=== PATIENT | male | born 1935 | race Caucasian/White ===

== ENCOUNTER 2017-03-06 09:04 | Inpatient (IN) ==
--- NOTE | 2017-02-27 07:31 | EEG/EMG/Oth Biometrics Report ---
EEG Procedure Report Date of procedure: 02/27/17 EEG Procedure: Routine EEG Procedure Note: This is a report of a 21 channel bipolar and referential montage EEG. A posterior dominant rhythm of 7-1/2 to 8 mixed theta and alpha frequencies identified symmetrically in the posterior head regions. This rhythm attenuates symmetrically with eye opening. Hyperventilation is not performed in the recording. There is no sleep activity identified during the study. Photic stimulation is performed and does not produce a driving response. The EKG strip reveals normal sinus rhythm at 60 bpm. Impressions: This EEG recording is slightly abnormal consistent with mild generalized encephalopathy. There is no evidence of epileptiform activity identified during the study. Comment: A normal EEG does not preclude a diagnosis of seizure or epilepsy. If the clinical suspicion for seizure activity is a concern serial EEGs or perhaps a prolonged recording may increase the yield. Etiologies of the above for mentioned interpretation might include toxic, metabolic, postictal, degenerative. Please correlate clinically. The documentation in the history of HPI and plan were at least partially created by [employer] voice recognition technology by Dr. Perez. Errors in grammar, wording or other phrases may exist. If errors are found after the documentation signed, they will be addressed individually in the addendum section of this document when appropriate.
[2017-03-06] MEDS ORDERED: Ondansetron 4 MG/2 ML VIAL ONE (09:11)
[2017-03-06] MEDS ORDERED: *HR* Remifentanil 2 MG VIAL IVP ONE (09:11)
[2017-03-06] MEDS ORDERED: *HR* Heparin 5,000 UNIT/ML VIAL ONE ×2 (09:11→12:54)
[2017-03-06] MEDS ORDERED: Dexamethasone 4 MG/ML VIAL ONE (09:11)
[2017-03-06] MEDS ORDERED: *HR* FentaNYL (PF) 100 MCG/2 ML VIAL ONE (09:11)
[2017-03-06] MEDS ORDERED: *HR* Propofol 200 MG/20 ML VIAL IVP ONE (09:11)
[2017-03-06] MEDS ORDERED: Lidocaine -MPF 2% 2 ML VIAL ONE (09:11)
[2017-03-06] MEDS ORDERED: EPHEDrine 50 MG/ML VIAL ONE (09:20)
[2017-03-06] MEDS ORDERED: Water for inj. (sterile) 10 ML IV ONE (09:23)
[2017-03-06] MEDS ORDERED: Ringers Solution, Lactated 1,000 ML IVC SCH (09:30)
--- NOTE | 2017-03-06 09:35 | Anesthesia Evaluation PreOp ---
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) Pulmonary History: Denies Any Significant HX SYSTEM CONFIGURATION SPECIALIST History: Syncope (related to carotid stenosis) Other Medical History: Denies Any Significant HX Anesthesia History: No Prior Anesthetic Complications (no past surgical history) Alcohol Use: none Drug use: none Medications and Allergies Albuterol Sulfate [Ventolin Hfa] 2 puff IH Q6H PRN 02/16/17 [History] Aspirin 81 mg PO DAILY 02/16/17 [History] Lisinopril [Zestril] 20 mg PO DAILY 02/16/17 [History] Naproxen Sodium [All Day Pain Relief] 220 mg PO DAILY 02/16/17 [History] Simvastatin [Zocor] 20 mg PO HS 02/16/17 [History] Allergies No Known Allergies Allergy (Verified 02/16/17 10:28) - Meds/Allergy Pre-op Review Medications Reviewed: Yes Allergies Reviewed: Yes Beta Blockers on Current Med List: No Anesthesia Results - Labs Laboratory Tests 02/27/17 02/27/17 02/27/17 15:16 15:16 15:16 Hgb 8.7 L Hct 28.2 L Plt Count 309 PT 10.8 INR 1.0 APTT 31.5 Sodium 139 Potassium 4.3 BUN 24 Creatinine 1.01 - Imaging EKG: report reviewed (nsr with first degree AV block) Anesthesia Exam Selected Entries 03/06/17 09:26 Temperature 97.7 F Pulse Rate 77 Respiratory Rate 18 Blood Pressure 123/73 O2 Sat by Pulse Oximetry 96 Height: 67 Weight: 68kg NPO (# of Hours): >8 Pain Scale: 0 Pain Scale Used: Numeric (1 - 10) - HEENT Pupil (Motor): EOMI Mallampati: II Teeth: Edentulous Oral Opening: Greater than 3 - SYSTEM CONFIGURATION SPECIALIST LOC: Oriented SYSTEM CONFIGURATION SPECIALIST Motor: Normal RUE, Normal LUE, Normal RLE, Normal LLE, Normal Face SYSTEM CONFIGURATION SPECIALIST Sensory: Normal: RUE, LUE, RLE, LLE, Face - Cardiac Rhythm: Regular Murmur: None - Pulmonary Breath Sounds: bilateral Clear Respiratory Effort: Symmetrical Anesthesia Assess/Plan ASA Score: 2 Modified [place] Scale for Level of Consciousness: Cooperative, oriented, and tranquil Anesthetic Plan: General Monitoring Plan: Standard Monitors, A-Line Recovery Plan: PACU (Discussed risks of GA, need for a-line. Questions answered and agrees to proceed.)
[2017-03-06] MEDS ORDERED: Heparin 1,000 UNITS/500 mL NS 500 ML ONE ×2 (10:12→10:55)
[2017-03-06] MEDS ORDERED: Lidocaine 1% 20 ML MDV ONE ×2 (10:55→11:14)
[2017-03-06] MEDS ORDERED: *HR* Midazolam HCl 2 MG/2 ML VIAL ONE (11:06)
--- NOTE | 2017-03-06 11:09 | History & Physical Report ---
Date of Encounter: 03/06/17 Time of Encounter: 11:09 24 Hour HP Update - Instructions Instructions: If the History and Physical is less than 30 days old and was completed prior to A.M. admission and or procedure and has NOT been updated on calendar day of procedure please complete this update prior to performing procedure. - Update Patient reports changes in Medical Condition: No Changes in examination, assessment, or condition: No Changes in Medication: No Preop tests/diagnostics Reviewed: Yes Surgery Remains Indicated: Yes Consent for Planned Operative Procedure(s) Verified: Yes - Pre-Operative Checklist Preoperative Checklist Indicated: Yes Prophylactic Antibiotic Ordered: Yes Home Medications Include Beta Franklin: No Beta Franklin Taken Today (Day of Surgery): No Beta Franklin Taken Yesterday (Day Prior to Surgery): No Is VTE Prophylaxis Indicated?: Yes
[2017-03-06] MEDS: CeFAZolin Pre 2,000 MG/100 ML 2,000 MG/100 ML BAG IVPB ONE (11:29)
--- NOTE | 2017-03-06 11:51 | Operative Note ---
Date of procedure: 03/06/17 Pre-op diagnosis: bilateral carotid stenosis Post-op diagnosis: same Procedure: left carotid endarterectomy with 8 Fr shunt and Hemashield patch angioplasty Anesthesia: DESTINYA Surgeon: Marcos Negrete Estimated blood loss (cc): 100 Specimen: none Condition: stable Disposition: PACU Procedure in Detail: History Kolby Benites is an 81-year-old white male who was found to have an abnormal carotid artery duplex scan. It demonstrated significant stenosis bilaterally and has had an increase in his stenosis over time. The patient was recommended to have an angiogram which was performed and demonstrated high-grade stenosis bilaterally greater on the left side than on the right. The patient now comes to the operating room for left carotid surgery. He will require right carotid surgery in the near future. Procedure After informed consent was obtained the patient was taken to the operating room. An arterial line was placed in the holding area. General endotracheal anesthesia was established. The left neck was then sterilely prepped and draped. An oblique incision was made paralleling the anterior border of the sternocleidomastoid muscle. Dissection was carried down to the carotid sheath. The carotid sheath was dissected and exposed. Selective control was obtained of the carotid vessels. 5000 units of heparin was administered intravenously. It should be noted there was significant inflammatory reaction around the carotid artery and lymphadenopathy was present. After 3 minute delay the vessels were clamped with the internal carotid artery clamped first. Using 11 blade knife and Zambrano scissors the carotid was opened beginning at the level of the distal common carotid artery and extended up on into the internal carotid artery. An 8 Romanian shunt was then inserted atraumatically. Patency the shunt was confirmed by the use of intraoperative Doppler. The artery was then flushed with a copious amount of heparinized saline. This exposed the plaque which was a very complex and heterogeneous plaque. As also found that the plaque extended more distally and so therefore the arteriotomy needed to be extended and a Dax shunt clamp was used to secure distal control. The shunt was then reinspected with ultrasound to ensure patency. With this done the endarterectomy was performed beginning at the distal aspect of common carotid artery. Dissection was conducted circumferentially. The dissection was carried proximally and distally. The orifice of the superior thyroid and external carotid artery was also endarterectomized. The bed of the vessels and carefully inspected for any residual debris. This was then removed and a patch angioplasty was performed using a Hemashield patch. This was sewn into position using 2 6-0 Prolene sutures. Leaving a small space open on the suture line the shunt was clamped divided and removed. The final few sutures were placed. The internal was allowed to backflush then was reclamped. The external and common were opened and finally the internal was reopened. The patient tolerated these manipulations well. There is no hemodynamic distress. Hemostasis was achieved. A superficial cervical block using half percent Marcaine was performed. The wound was then irrigated with antibiotic containing solution. The wound was closed in layers using absorbable suture. There were no intraoperative complications. The patient was extubated in the operating room and taken to the recovery room in stable condition. The patient remained neurologically intact.
--- NOTE | 2017-03-06 12:52 | Anesthesia Procedures ---
Date of Encounter: 03/06/17 Time of Encounter: 11:15 Procedures: Anesthesia - Arterial Line Consent obtained: verbal consent Time out performed: Yes Sedation: Versed (mg): 1 Sedation: Fentanyl (mcg): 25 Supplemental Oxygen via Nasal Cannula (L/min): 2 Local Anesthetic: Other (2% lido) Amount of Anesthetic used (mls): 0.2 Size (Gauge): 20 Length (inches): 1 3/4 Technique Used: sterile prep, direct puncture technique Post-Procedure: line taped into place Patient tolerated procedure: well, no complications Complications: none Site: Radial R Vitals: Vital Signs/O2 Sat/Glucose, Most Recent Temp Pulse Resp BP Pulse Ox 97.7 F 73 18 141/70 96 03/06/17 09:26 03/06/17 11:30 03/06/17 11:30 03/06/17 11:30 03/06/17 11:30
[2017-03-06] MEDS ORDERED: *HR* Morphine 2 MG/ML SYRINGE IVP PRN ×3 (12:53→15:47)
[2017-03-06] MEDS ORDERED: *HR* Labetalol 100 MG/20 ML MDV IVP PRN (12:53)
[2017-03-06] MEDS ORDERED: *HR* Morphine 10 MG/ML VIAL ONE (15:02)
--- NOTE | 2017-03-06 15:28 | Anesthesia Evaluation Post Op ---
Date of Encounter: 03/06/17 Time of Encounter: 15:20 - Vital Signs Vital Signs: vss - Lungs Lungs: Clear Ascult./Percussion - Airway Airway: Non-obstructed - Cardiovascular Regular Rate, Baseline Rhythm - Mental Status Mental Status: Alert & Oriented, Answers Appropriately - Pain Pain Scale: 0 Pain Scale used: Numeric (1 - 10) - Nausea Vomiting Nausea Vomiting: Not Present - Hydration Hydration: NPO, Tolerates oral liquids, Ice chips - Discharge PostOp Status: Transfer Patient to floor
[2017-03-06] MEDS ORDERED: Acetaminophen 325 MG TABLET PO PRN (15:47)
[2017-03-06] MEDS ORDERED: Ondansetron 4 MG/2 ML VIAL IVP PRN (15:47)
[2017-03-06] MEDS ORDERED: *HR* HYDROcodone/Acet 5/325 mg TABLET PO PRN (15:47)
[2017-03-06] MEDS ORDERED: Naloxone 0.4 MG/ML INJ IVP PRN (15:47)
[2017-03-06] MEDS ORDERED: *HR* Labetalol 20 MG/4 ML SYRINGE IVP PRN (16:54)
[2017-03-06] MEDS: Lisinopril 20 MG TABLET PO SCH (17:23)
[2017-03-06] MEDS: ceFAZolin 2,000 MG in D5% in Water 100 ML IVPB SCH ×2 (17:23→23:33)
[2017-03-07 04:47] LABS: Hematocrit 25.7 % (37.5-50.1); Hemoglobin 7.9 g/dL (12.9-16.9); Immature Granulocytes % 0.3 % (0-4); Immature Platelets 1.9 % (1.1-6.1); Lymphocytes # 0.9 K/mcL (0.6-4.6); Lymphocytes % 13.2 %; Mean Corpuscular HGB Conc 30.7 g/dL (31.6-35.5); Mean Corpuscular Hemoglobin 23.9 pg (28.0-33.3); Mean Corpuscular Volume 77.9 fL (83.0-100.0); Mean Platelet Volume 9.7 fL (9.4-12.4); Monocytes # 1.1 K/mcL (0.0-1.3); Neutrophils # 4.7 K/mcL (1.6-8.9); Platelet Count 275 K/mcL (140-400); Red Cell Distribution Width 17.1 % (11.5-14.5); Segmented Neutrophils % 70.5 %
[2017-03-07 05:00] LABS: BUN/Creatinine Ratio 21 (6-26); Blood Urea Nitrogen 19 mg/dL (8-26); Calcium 8.3 mg/dL (8.6-10.8); Carbon Dioxide 25 mEq/L (19-29); Chloride 106 mEq/L (98-109); Glucose 128 mg/dL (70-99); Osmolality,Calculated 288 (280-300); Sodium 137 mEq/L (136-145); eGFR For African Americans > 60 (> 60); eGFR For Non-African Americans > 60 (> 60)
[2017-03-07] MEDS: Lisinopril 20 MG TABLET PO SCH (07:33)
[2017-03-07] MEDS: CeFAZolin Pre 2,000 MG/100 ML 2,000 MG/100 ML BAG IVPB ONE (08:18)
--- NOTE | 2017-03-07 08:23 | Discharge Summary ---
Date of Encounter: 03/07/17 Time of Encounter: 08:20 - Discharge Diagnosis (1) Bilateral carotid artery disease Priority: Primary Status: Chronic Comments: Patient has worsening of duplex scan findings of carotid artery disease. Angiography confirmed high-grade stenosis bilateral. The patient underwent a left carotid endarterectomy at this time because this was the more severe of the 2 critical stenoses. He will return in the near future for a right carotid endarterectomy. (2) Hypertension Priority: Secondary Status: Chronic Comments: Patient has long-term central chronic hypertension which is under control with the use of lisinopril. Qualifiers: Hypertension type: essential hypertension Qualified Code(s): I10 - Essential (primary) hypertension (3) Chronic anemia Priority: Secondary Status: Chronic Comments: Patient has chronic anemia. Mild changes due to minimal perioperative blood loss and perioperative intravenous hydration. Patient is asymptomatic and no intervention is necessary at this time. - Discharge Medications Home Medications: Albuterol Sulfate [Ventolin Hfa] 2 puff IH Q6H PRN 02/16/17 [History] Aspirin 81 mg PO DAILY 02/16/17 [History] Lisinopril [Zestril] 20 mg PO DAILY 02/16/17 [History] Naproxen Sodium [All Day Pain Relief] 220 mg PO DAILY 02/16/17 [History] Simvastatin [Zocor] 20 mg PO HS 02/16/17 [History] Allergies/Adverse Reactions: Allergies No Known Allergies Allergy (Verified 03/06/17 10:27) Date of admission: 03/06/17 15:25 Primary care physician: Juanito Santana MD Consults: None Procedure(s) Performed: Left carotid endarterectomy with patch angioplasty Discharging clinician: Marcos Negrete Anticipated date of discharge: 03/07/17 - Patient Status Disposition: Home, Self-Care Condition: Good Functional capacity at discharge: independent ambulation Overall status at discharge: patient is progressing back to baseline - Discharge Instructions Instructions: Heart Healthy Diet (DC), Peripheral Vascular Disorders (DC), Chronic Hypertension (DC) Follow Up With: Juanito Santana MD [Primary Care Provider] - 03/13/17 10:20 am Marcos Negrete MD [Partnered Physician] - 03/14/17 (call clinic to schedule time) Additional Instructions: Keep left neck incision dry for total 5 days following surgery Use ice pack on left neck incision for 2 days after discharge at home. No manual labor for 2 weeks No automobile driving or lifting greater than 10 pounds Patient is to resume usual home medications Patient is to follow-up with Dr. Negrete in 2 weeks. - Diet and Activity Activity: increase activity as tolerated Diet: advance to your usual diet - Hospital Course Hospital course: Mr. Benites is a 81 year old male With history of carotid artery disease. He was followed with outpatient carotid duplex scanning. This showed an exacerbation of the stenosis. He then went on to have a carotid angiogram. This confirmed our suspicion of high-grade and critical stenosis of the carotid arteries bilaterally. The left was more critical of the tube and so therefore the left carotid endarterectomy was performed at this time. The patient will need right carotid surgery and this will be will be performed in the near future. The patient tolerated the procedure well. No periprocedural complications. He had no anesthetic complications. He was neurologically intact following surgery. The patient will be ambulated in the hallways and if stable will be discharged to home later today. Information regards to wound care, medications, and discharge planning were reviewed with the patient and his prior to the patient's discharge. - Time Spent with Patient Total time spent providing and/or coordinating discharge services: Exam Vital Signs, Last 4 Hours Temp Pulse Resp BP Pulse Ox 03/07/17 07:13 98.4 F 70 16 112/58 94 General: Present: Conversant, No Apparent Distress HEENT: Present: Atraumatic, Normocephaly, Trachea midline, Pupils equal Neck: Absent: JVD Cardiac: Present: Reg Rate and Rhythm Lungs: Present: Normal Breath Sounds Neuro: Present: Alert and responsive, No focal deficits noted, Cranial nerves grossly intact, Motor nerves grossly intact, Sensory nerves grossly intact Vascular: Present: Surgical incisions (Left neck incision is clean and dry) Skin: Present: No rashes noted on visualized skin - VTE Documentation of Mechanical Device: Intermittent pneumatic compression device
[2017-03-07] MEDS: ceFAZolin 2,000 MG in D5% in Water 100 ML IVPB SCH (08:45)
[2017-03-07] MEDS ORDERED: Lisinopril 20 MG TABLET PO SCH (09:00)
[2017-03-07] MEDS ORDERED: Aspirin 81 MG TAB.CHEW PO SCH (09:00)
[2017-03-07 15:30] VITALS: BP 123/69
== END 2017-03-07 16:58 | disposition home or self-care (01) ==
LOC: SAMDAY 09:04 → 2NNU 15:25
PROVIDERS: ADMIT Surgery Vascular Surgery; ATTEND Surgery Vascular Surgery

== ENCOUNTER 2017-03-22 06:11 | Inpatient (IN) ==
[2017-03-22] MEDS ORDERED: CeFAZolin Pre 2,000 MG/100 ML 2,000 MG/100 ML BAG IVPB ONE (06:29)
[2017-03-22] MEDS ORDERED: Lidocaine -MPF 1% 2 ML VIAL ID ONE (06:29)
[2017-03-22] MEDS: Ringers Solution, Lactated 1,000 ML IVC SCH ×2 (06:52→09:32)
[2017-03-22] MEDS ORDERED: Dexmedetomidine HCl 200 MCG/50 ML MLS IVC ONE (06:59)
--- NOTE | 2017-03-22 07:33 | Anesthesia Evaluation PreOp ---
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 HX Other Medical History: Denies Any Significant HX Anesthesia History: No Prior Anesthetic Complications, Past Anesthesia Alcohol Use: none Drug use: none Medications and Allergies Aspirin 81 mg PO DAILY 02/16/17 [History] Simvastatin [Zocor] 20 mg PO HS 02/16/17 [History] Latanoprost [Xalatan] 1 drop BOTH EYES HS 03/22/17 [History] Lisinopril-HCTZ 20-12.5 [Prinzide 20-12.5] 1 tab PO DAILY 03/22/17 [History] Omeprazole [PriLOSEC] 20 mg PO DAILY PRN 03/22/17 [History] Terbinafine HCl [Terbinafine HCl] 250 mg PO DAILY 03/22/17 [History] Allergies No Known Allergies Allergy (Verified 03/22/17 06:53) - Meds/Allergy Pre-op Review Medications Reviewed: Yes Allergies Reviewed: Yes Beta Blockers on Current Med List: No Anesthesia Results - Imaging EKG: report reviewed, image reviewed (sinus rhythm with first degree AV block) Anesthesia Exam Selected Entries 03/22/17 06:29 Temperature 98.0 F Pulse Rate 80 Respiratory Rate 18 Blood Pressure 120/65 O2 Sat by Pulse Oximetry 95 Weight: 157 lbs NPO (# of Hours): over 8 hours - HEENT Pupil (Motor): Pupils equal Mallampati: II Teeth: Edentulous Oral Opening: Greater than 3 - Cardiac Rhythm: Regular - Pulmonary Breath Sounds: bilateral Clear Respiratory Effort: Symmetrical Anesthesia Assess/Plan ASA Score: 2 Modified [place] Scale for Level of Consciousness: Cooperative, oriented, and tranquil Anesthetic Plan: General Autologous Blood: Yes Monitoring Plan: Standard Monitors, A-Line Recovery Plan: PACU (Discussed GA, risks agreed to proceed. Patient will be Type and Screened prior to OR. Will discuss patients anemia with Dr. Negrete prior to proceeding.)
--- NOTE | 2017-03-22 07:47 | History & Physical Report ---
Date of Encounter: 03/22/17 Time of Encounter: 07:35 24 Hour HP Update - Instructions Instructions: If the History and Physical is less than 30 days old and was completed prior to A.M. admission and or procedure and has NOT been updated on calendar day of procedure please complete this update prior to performing procedure. - Update Patient reports changes in Medical Condition: No Changes in examination, assessment, or condition: No Changes in Medication: No Preop tests/diagnostics Reviewed: Yes Surgery Remains Indicated: Yes Consent for Planned Operative Procedure(s) Verified: Yes - Pre-Operative Checklist Preoperative Checklist Indicated: Yes Prophylactic Antibiotic Ordered: Yes Home Medications Include Beta Franklin: No Beta Franklin Taken Today (Day of Surgery): No Beta Franklin Taken Yesterday (Day Prior to Surgery): No Is VTE Prophylaxis Indicated?: Yes
[2017-03-22] MEDS ORDERED: Heparin 1,000 UNITS/500 mL NS 1,500 ML ONE (07:58)
[2017-03-22] MEDS ORDERED: Lidocaine 1% 20 ML MDV ONE (07:58)
[2017-03-22] MEDS ORDERED: *HR* FentaNYL (PF) 100 MCG/2 ML VIAL ONE (09:33)
[2017-03-22] MEDS ORDERED: *HR* Morphine 2 MG/ML SYRINGE IVP PRN ×2 (11:02→12:31)
[2017-03-22] MEDS ORDERED: Ondansetron 4 MG/2 ML VIAL IVP ONE (11:02)
--- NOTE | 2017-03-22 11:25 | Operative Note ---
Date of procedure: 03/22/17 Pre-op diagnosis: right carotid stenosis Post-op diagnosis: same Procedure: right carotid endarterectomy with 8 FR shunt and patch angioplasty Complications: none Anesthesia: DESTINYA Surgeon: Marcos Negrete Estimated blood loss (cc): 75 Specimen: none Condition: stable Disposition: PACU Procedure in Detail: History Mr. Benites is an 81-year-old white male was found to have a markedly abnormal carotid duplex scan. This led to a carotid angiogram which demonstrated critical stenosis bilaterally. He does undergo on a left carotid endarterectomy approximately 3 weeks ago. He now comes for the right carotid endarterectomy. Procedure After informed consent was obtained the patient was taken to the operating room. General endotracheal anesthesia was established and arterial line was placed. The right neck was sterilely prepped and draped. A timeout protocol was observed. An oblique incision was then made paralleling the anterior border sternocleidomastoid muscle. Dissection was carried down to the carotid sheath. Controls obtained of the carotid arteries. The nerve structures were identified and preserved. 5000 units heparin were administered intravenously. After 3 minutes later the vessels were clamped with the internal carotid artery clamped first. Using 11 blade knife and Zambrano scissors to the artery was opened. An 8 Uzbek was inserted atraumatically. Patency the shunt was confirmed by the use of intraoperative Doppler. Inspection of the plaque revealed a very irregular and dense thick plaque. There is areas of intramural hemorrhage that appeared to be fresh on the distal aspect. There was no signs of intraluminal thrombus. The dissection was then begun at the distal aspect of the common carotid artery. A dissection plane was established circumferentially. It was then carried proximally and distally. The superior thyroid and external carotid artery were endarterectomized. The endpoint on the internal carotid artery was quite high and required extension of the arteriotomy in order to secure an appropriate distal endpoint. After meticulous dissection and removal of all plaque and the endpoint was secured. No tacking sutures were necessary. The artery was then closed using a Hemashield patch. This was sewn in position using 2 6-0 Prolene sutures. Leaving a small space open on the suture line the shunt was clamped and divided and removed. The final few sutures were then placed. The internal carotid was allowed to backbleed and was reclamped. The external and common were opened and finally the internal was reopened. There is no hemodynamic distress with this maneuver. Excellent pulsations were identified by palpation and by Doppler evaluation. Hemostasis was achieved. A superficial cervical block using half percent Marcaine was performed. The wound was then closed in layers using absorbable suture. A dry sterile dressing was applied. No drains were placed. Estimated blood loss 75 mL. Patient was extubated in the operating room and found be neurologically intact. He was then transported from the operating room to the recovery room in stable condition.
--- NOTE | 2017-03-22 12:12 | Anesthesia Evaluation Post Op ---
Date of Encounter: 03/22/17 Time of Encounter: 12:12 - Vital Signs Vital Signs: Vital Signs/O2 Sat, Most Current Temp Pulse Resp BP Pulse Ox 98.2 F 86 20 133/74 96 03/22/17 12:06 03/22/17 12:06 03/22/17 12:06 03/22/17 12:03/22/17 12:06 - Lungs Lungs: Clear Ascult./Percussion - Airway Airway: Non-obstructed - Cardiovascular Regular Rate - Mental Status Mental Status: Alert & Oriented, Answers Appropriately - Pain Pain Scale: 0 Pain Scale used: Numeric (1 - 10) - Nausea Vomiting Nausea Vomiting: Not Present - Hydration Hydration: Ice chips, Bailon catheter - Discharge PostOp Status: Transfer Patient to floor
[2017-03-22] MEDS ORDERED: *HR* HYDROcodone/Acet 5/325 mg TABLET PO PRN (12:31)
[2017-03-22] MEDS ORDERED: Ondansetron 4 MG/2 ML VIAL IVP PRN (12:31)
[2017-03-22] MEDS ORDERED: Naloxone 0.4 MG/ML INJ IVP PRN (12:31)
[2017-03-22] MEDS ORDERED: Acetaminophen 325 MG TABLET PO PRN (12:31)
--- NOTE | 2017-03-22 12:54 | Anesthesia Procedures ---
Date of Encounter: 03/22/17 Time of Encounter: 08:02 Procedures: Anesthesia - Arterial Line Consent obtained: written consent Time out performed: Yes Sedation: Versed (mg): 1 Local Anesthetic: Lidocaine 1% Amount of Anesthetic used (mls): 1 Size (Gauge): 20 Length (inches): 1 3/4 Technique Used: sterile prep, direct puncture technique Post-Procedure: line taped into place, dry sterile dressing placed Patient tolerated procedure: well, no complications Complications: none Site: Radial L Vitals: vss though out.
[2017-03-22] MEDS: ceFAZolin 2,000 MG in D5% in Water 100 ML IVPB SCH (18:23)
[2017-03-22] MEDS ORDERED: Latanoprost 2.5 ML BOTTLE BOTH EYES SCH (21:00)
[2017-03-23] MEDS: ceFAZolin 2,000 MG in D5% in Water 100 ML IVPB SCH ×2 (02:40→09:19)
[2017-03-23 05:31] LABS: Basophils % 0.1 %; Eosinophils # 0.1 K/mcL (0.0-0.6); Eosinophils % 0.7 %; Hematocrit 26.1 % (37.5-50.1); Hemoglobin 8.2 g/dL (12.9-16.9); Immature Granulocytes % 0.1 % (0-4); Lymphocytes # 1.3 K/mcL (0.6-4.6); Lymphocytes % 18.6 %; Mean Corpuscular HGB Conc 31.4 g/dL (31.6-35.5); Mean Corpuscular Hemoglobin 24.7 pg (28.0-33.3); Mean Corpuscular Volume 78.6 fL (83.0-100.0); Mean Platelet Volume 9.8 fL (9.4-12.4); Monocytes # 1.1 K/mcL (0.0-1.3); Monocytes % 14.9 %; Neutrophils # 4.6 K/mcL (1.6-8.9); Platelet Count 323 K/mcL (140-400); Red Blood Count 3.32 M/mcL (4.19-5.50); Red Cell Distribution Width 17.5 % (11.5-14.5); Segmented Neutrophils % 65.6 %
[2017-03-23 05:49] LABS: BUN/Creatinine Ratio 18 (6-26); Blood Urea Nitrogen 17 mg/dL (8-26); Carbon Dioxide 27 mEq/L (19-29); Chloride 105 mEq/L (98-109); Glucose 159 mg/dL (70-99); Osmolality,Calculated 291 (280-300); Potassium 3.8 mEq/L (3.5-4.5); Sodium 138 mEq/L (136-145); eGFR For African Americans > 60 (> 60); eGFR For Non-African Americans > 60 (> 60)
[2017-03-23] MEDS ORDERED: Lisinopril-HCTZ 20-12.5mg TABLET PO SCH (09:00)
[2017-03-23] MEDS ORDERED: Aspirin 81 MG TAB.CHEW PO SCH (09:00)
[2017-03-23] MEDS ORDERED: (Terbinafine Hcl [Terbinafine Hcl] 250 MG) PO SCH (09:00)
[2017-03-23 11:45] VITALS: BP 112/80
--- NOTE | 2017-03-23 14:08 | Discharge Summary ---
Date of Encounter: 03/23/17 Time of Encounter: 14:06 - Discharge Diagnosis (1) Bilateral carotid artery disease Priority: Primary Status: Chronic Comments: Patient underwent right carotid endarterectomy during this admission. He had undergone a left carotid endarterectomy approximately 3 weeks ago. (2) Chronic anemia Priority: Secondary Status: Chronic Comments: The patient was found to have a hemoglobin of 7.9 grams between his 2 carotid operations. Therefore one unit of packed red blood cells was transfused during surgery though the blood loss for the surgery itself was very minimal during the patient notes he is feeling better postoperatively following the transfusion. - Discharge Medications Home Medications: Aspirin 81 mg PO DAILY 02/16/17 [History] Simvastatin [Zocor] 20 mg PO HS 02/16/17 [History] Latanoprost [Xalatan] 1 drop BOTH EYES HS 03/22/17 [History] Lisinopril-HCTZ 20-12.5 [Prinzide 20-12.5] 1 tab PO DAILY 03/22/17 [History] Omeprazole [PriLOSEC] 20 mg PO DAILY PRN 03/22/17 [History] Terbinafine HCl 250 mg PO DAILY 03/22/17 [History] Allergies/Adverse Reactions: Allergies No Known Allergies Allergy (Verified 03/22/17 06:53) Date of admission: 03/22/17 12:15 Primary care physician: Juanito Santana MD Consults: None Procedure(s) Performed: Right carotid endarterectomy with patch angioplasty Transfusion one unit packed red blood cells Discharging clinician: Marcos Negrete Anticipated date of discharge: 03/23/17 - Patient Status Disposition: Home, Self-Care Condition: Good Functional capacity at discharge: independent ambulation Overall status at discharge: patient is progressing back to baseline - Discharge Instructions Follow Up With: Juanito Santana MD [Primary Care Provider] - 03/30/17 11:40 am Marcos Negrete MD [Partnered Physician] - 04/11/17 11:45 am Additional Instructions: Keep right neck incision dry for total of 5 days following surgery. No automobile driving. No lifting greater than 10 pounds. No manual labor. Patient is to resume his usual home medications. Patient is to use ice pack on right neck for the next 2-3 days. - Diet and Activity Activity: as per physical therapy Diet: low fat, low cholesterol - Hospital Course Hospital course: Mr. Benites is a 81 year old male With known bilateral carotid artery disease. The patient had undergone a left carotid endarterectomy approximately 3 weeks ago. He now returns for the right carotid lesion. The right carotid endarterectomy was performed yesterday under general endotracheal anesthesia. The patient had a very long lesion. There were no periprocedural complications. The patient was noted to have a low hemoglobin of 7.9 and was transfused 1 unit of blood intraoperatively though the blood loss for the procedure itself was minimal. Postoperatively the patient was doing well. He had no neurologic deficits. Hemoglobin was now greater than 8 g. The patient was felt fit for discharge on the afternoon of postoperative day # 1. Instructions were given in regards to his diet and activity and wound care. - Time Spent with Patient Total time spent providing and/or coordinating discharge services: Exam Vital Signs, Last 4 Hours Temp Pulse Resp BP Pulse Ox 03/23/17 11:41 97.6 F 90 16 112/80 98 General: Present: Conversant, No Apparent Distress, Well developed HEENT: Present: Atraumatic, Normocephaly, Trachea midline Neck: Absent: JVD Cardiac: Present: Reg Rate and Rhythm Neuro: Present: Alert and responsive, No focal deficits noted, Cranial nerves grossly intact, Motor nerves grossly intact, Sensory nerves grossly intact Vascular: Present: Normal capillary refill Skin: Present: No rashes noted on visualized skin - VTE Documentation of Mechanical Device: Intermittent pneumatic compression device
== END 2017-03-23 15:05 | disposition home or self-care (01) | DRG 39 ==
LOC: SAMDAY 06:11 → 2NNU 12:15
PROVIDERS: ADMIT Surgery Vascular Surgery; ATTEND Surgery Vascular Surgery

== ENCOUNTER 2017-07-20 14:38 | Inpatient (IN) ==
--- NOTE | 2017-07-20 15:31 | Emergency Department Note ---
Disposition Clinical Impression: Sinus pause, Syncope Disposition: Admitted As Inpatient Condition: Good Time of Disposition: 17:36 General Adult HPI - General Chief complaint: ED Arrhythmia/Palpitations Stated complaint: arrhythmia, syncope Time Seen by Provider: 07/20/17 14:51 Source: patient Limitations: no limitations Nursing Notes Reviewed: Yes Vital Signs Reviewed: Yes - History of Present Illness HPI Narrative: Several week history of dizziness. The amount of REM states that the patient has episodes where he passes out. Male suggests that he is not actually passing out he can hear everything the same time as to communicate. Is unaware. Will not communicate because he is being mean or cannot communicate. Did have a Holter monitor. Showed pauses. Sent to the emergency department. Pain Scale: 0 - Related Data Home Medications Medication Instructions Recorded Confirmed Aspirin 81 mg PO DAILY 02/16/17 07/20/17 Latanoprost [Xalatan] 1 drop BOTH EYES HS 03/22/17 07/20/17 Omeprazole [PriLOSEC] 20 mg PO DAILY PRN 03/22/17 07/20/17 Atorvastatin [Lipitor] 40 mg PO HS 07/20/17 07/20/17 Lisinopril [Zestril] 10 mg PO DAILY 07/20/17 07/20/17 Allergies Allergy/AdvReac Type Severity Reaction Status Date / Time No Known Allergies Allergy Verified 03/22/17 06:53 All systems ED: reviewed and negative except as stated. Constitutional: Denies: fever, chills ENT ED: Denies: congestion Cardiovascular: Denies: chest pain, palpitations, syncope Respiratory: Denies: cough, dyspnea Gastrointestinal: Denies: abdominal pain, nausea, vomiting, diarrhea Genitourinary: Denies: urgency, dysuria, frequency Integumentary: Denies: rash Neurological: Denies: headache, weakness Past Medical History - Past Medical History Attestation: Yes The following information was validated with the patient. Source: patient Medical history: Reports: hyperlipidemia, hypertension Surgical history: Reports: no surgical history Psychiatric history: Reports: no psych history - Social History Smoking Status: Former smoker Smokeless Tobacco Status: No Alcohol use: Reports: rarely Drug use: Reports: none Physical Exam - General Limitations: no limitations General appearance: alert, in no apparent distress - Head Head exam: atraumatic, normocephalic, normal inspection - Eye Eye exam: Present: normal appearance, PERRL, EOMI - ENT ENT exam: normal exam, normal oropharynx, mucous membranes moist - Neck Neck exam: Present: normal inspection, full ROM, trachea midline - Chest Chest inspection: Present: normal inspection, symmetric chest wall rise - Respiratory Respiratory exam: Present: normal lung sounds bilaterally. Absent: respiratory distress, accessory muscle use - Cardiovascular Cardiovascular exam: Present: regular rate, normal rhythm, normal heart sounds - Abdominal Exam Abdominal exam: Present: soft, Non-Tender, normal bowel sounds. Absent: tenderness, distention, guarding, rebound, rigidity, organomegaly - Extremities Exam Extremities exam: Present: normal inspection, full ROM, normal capillary refill. Absent: tenderness, pedal edema - Back Exam Back exam: Present: normal inspection, full ROM. Absent: tenderness - Neurological Exam Neurological exam: Present: alert, oriented X3 - Psychiatric Psychiatric exam: Present: normal affect, normal mood - Skin Skin exam: Present: warm, dry, intact, normal color. Absent: rash, cyanosis, diaphoresis, erythema Course Course Narrative: Patient presenting to the emergency department complaining of three-week history of dizziness. Patient recently had a Holter monitor placed and removed. This was performed at hours. He states that he was told by Dr. Tillman the handkerchief presser to come to the emergency department today for several pauses noted on his Holter monitor. Patient states that he does not believe he is ever fully pass out however the femur on the room states that he does this frequently. He states that he can still hear the female whenever he he has "passed out. He states that he does not have features being mean and does not want to speak to her or if he just cannot talk at that time. He states he has never had this Before. States that he has never had chest pain or shortness of breath. States he otherwise feels well at this time. We will do basic cardiac workup of patient contact Dr. Tillman. I anticipate admission for the patient. He has no complaints at this time. He has requesting coffee. We will withhold this for now. - Reevaluation(s) Reevaluation #1: Patient's workup was grossly normal. We will admit patient for his syncope as well as the sinus pauses. We have spoke with cardiology. They state they will see the patient has a consult here. Patient is agreeable to admission. - Consultations Consultation #1: I spoke with the handkerchief presser Dr. Lance Tillman. He is requesting admission and states they will consult on the floor here. Consultation #2: Master the nurse practitioner accepted patient in stable condition. Time: 17:35 Vital Signs Temperature 98.5 F 07/20/17 14:52 Pulse Rate 67 07/20/17 14:52 Respiratory Rate 16 07/20/17 14:52 Blood Pressure 152/76 07/20/17 14:52 O2 Sat by Pulse Oximetry 96 07/20/17 14:52 Temperature 98.0 F 07/21/17 06:48 Pulse Rate 63 07/21/17 06:48 Respiratory Rate 18 07/21/17 06:48 Blood Pressure 160/83 07/21/17 06:48 O2 Sat by Pulse Oximetry 97 07/21/17 06:48 Oxygen Delivery Oxygen Delivery Room Air Medical Decision Making - Medical Records Medical records reviewed: Yes I reviewed the patient's medical records. - Lab Data Lab results reviewed: Yes I reviewed the patient's lab results. Result diagrams: 07/21/17 05:24 07/21/17 05:24 Lab Results 07/20/17 07/20/17 07/20/17 Range/Units 15:15 15:15 15:15 WBC 4.3 (4.3-11.1) K/mcL RBC 4.54 (4.19-5.50) M/mcL Hgb 13.0 (12.9-16.9) g/dL Hct 40.3 (37.5-50.1) % MCV 88.8 (83.0-100.0) fL MCH 28.6 (28.0-33.3) pg MCHC 32.3 (31.6-35.5) g/dL RDW 15.5 H (11.5-14.5) % Plt Count 231 (140-400) K/mcL MPV 9.6 (9.4-12.4) fL Immature Gran % 0.0 (0-4) % Seg Neutrophils % 46.7 % Lymphocytes % 31.9 % Monocytes % 12.0 % Eosinophils % 8.9 % Basophils % 0.5 % Neutrophils # 2.0 (1.6-8.9) K/mcL Lymphocytes # 1.4 (0.6-4.6) K/mcL Monocytes # 0.5 (0.0-1.3) K/mcL Eosinophils # 0.4 (0.0-0.6) K/mcL Basophils # 0.0 (0.0-0.2) K/mcL PT 10.8 (9.4-12.1) Seconds INR 1.0 APTT 31.2 (26.0-36.0) Seconds Sodium 141 (136-145) mEq/L Potassium 4.4 (3.5-4.5) mEq/L Chloride 105 (98-109) mEq/L Carbon Dioxide 29 (19-29) mEq/L BUN 16 (8-26) mg/dL Creatinine 1.02 (0.72-1.25) mg/dL Est GFR ( Amer) > 60 (> 60) Est GFR (Non-Af Amer) > 60 (> 60) BUN/Creatinine Ratio 16 (6-26) Glucose 98 (70-99) mg/dL Calculated Osmolality 293 (280-300) Calcium 8.9 (8.6-10.8) mg/dL Magnesium 2.3 (1.6-2.6) mg/dL Troponin I (0-0.03) ng/mL TSH 2.775 (0.350-4.840) mcIU/mL Urine Color (Yellow) Urine Clarity (Clear) Urine pH (5.0-8.0) pH Units Ur Specific [place] (1.010-1.025) Urine Protein (Neg-Trace) mg/dL Urine Glucose (UA) (Normal) mg/dL Urine Ketones (Negative) mg/dL Urine Blood (Negative) Urine Nitrite (Negative) Urine Bilirubin (Negative) Urine Urobilinogen (Normal) mg/dL Ur Leukocyte Esterase (Negative) Ur Culture Indicated? (NO) 07/20/17 07/20/17 Range/Units 15:15 17:48 WBC (4.3-11.1) K/mcL RBC (4.19-5.50) M/mcL Hgb (12.9-16.9) g/dL Hct (37.5-50.1) % MCV (83.0-100.0) fL MCH (28.0-33.3) pg MCHC (31.6-35.5) g/dL RDW (11.5-14.5) % Plt Count (140-400) K/mcL MPV (9.4-12.4) fL Immature Gran % (0-4) % Seg Neutrophils % % Lymphocytes % % Monocytes % % Eosinophils % % Basophils % % Neutrophils # (1.6-8.9) K/mcL Lymphocytes # (0.6-4.6) K/mcL Monocytes # (0.0-1.3) K/mcL Eosinophils # (0.0-0.6) K/mcL Basophils # (0.0-0.2) K/mcL PT (9.4-12.1) Seconds INR APTT (26.0-36.0) Seconds Sodium (136-145) mEq/L Potassium (3.5-4.5) mEq/L Chloride (98-109) mEq/L Carbon Dioxide (19-29) mEq/L BUN (8-26) mg/dL Creatinine (0.72-1.25) mg/dL Est GFR ( Amer) (> 60) Est GFR (Non-Af Amer) (> 60) BUN/Creatinine Ratio (6-26) Glucose (70-99) mg/dL Calculated Osmolality (280-300) Calcium (8.6-10.8) mg/dL Magnesium (1.6-2.6) mg/dL Troponin I 0.03 (0-0.03) ng/mL TSH (0.350-4.840) mcIU/mL Urine Color Yellow (Yellow) Urine Clarity Clear (Clear) Urine pH 7.0 (5.0-8.0) pH Units Ur Specific [place] 1.018 (1.010-1.025) Urine Protein Negative (Neg-Trace) mg/dL Urine Glucose (UA) Normal (Normal) mg/dL Urine Ketones Negative (Negative) mg/dL Urine Blood Negative (Negative) Urine Nitrite Negative (Negative) Urine Bilirubin Negative (Negative) Urine Urobilinogen Normal (Normal) mg/dL Ur Leukocyte Esterase Negative (Negative) Ur Culture Indicated? NO (NO) - Radiology Data Radiology results reviewed: Yes I reviewed the patient's radiology results. Chest X-Ray 07/20/17 14:53 IMPRESSION: No evidence of acute disease. D/ / Ezequiel Feliciano MD / Ezequiel Feliciano MD Interpreting Provider: Ezequiel Feliciano MD - EKG Data EKG #1 EKG attestation: Yes I reviewed and interpreted this EKG. EKG results narrative: Normal sinus rhythm with first-degree AV block. Ventricular rate of 68. WI interval is 313. QRS duration is 88. QT is 390. QTC is 407. No signs of acute ischemia. No previous EKG to compare to. Attestation Statement - Attestation Attestation: I, Lance Palma, examined this patient and my medical decision-making was reviewed with the PIN MACHINE TENDER/PA/Advanced Practice Nurse/Resident Physician. I agree with the documented findings, disposition and treatment plan as described except to the extent set forth below. 81-year-old male presents emergency Department with concerns of near syncope. Patient states he has had similar symptoms for the past few weeks. He had a Holter monitor in place over the past 48 hours. It was read by the handkerchief presser today who called and told him to come to the emergency department. On reevaluation of the ulcer monitor results patient had a greater than 5 seconds pause. Patient denies recent exertion or chest pain or actual syncope. Patient's vital signs are stable in emergency department. He feels comfortable with plan for admission to the hospital for further care and evaluation
[2017-07-20 15:32] LABS: Basophils % 0.5 %; Eosinophils # 0.4 K/mcL (0.0-0.6); Eosinophils % 8.9 %; Hematocrit 40.3 % (37.5-50.1); Lymphocytes # 1.4 K/mcL (0.6-4.6); Lymphocytes % 31.9 %; Mean Corpuscular HGB Conc 32.3 g/dL (31.6-35.5); Mean Corpuscular Hemoglobin 28.6 pg (28.0-33.3); Mean Corpuscular Volume 88.8 fL (83.0-100.0); Mean Platelet Volume 9.6 fL (9.4-12.4); Monocytes # 0.5 K/mcL (0.0-1.3); Platelet Count 231 K/mcL (140-400); Red Blood Count 4.54 M/mcL (4.19-5.50); Red Cell Distribution Width 15.5 % (11.5-14.5); Segmented Neutrophils % 46.7 %
[2017-07-20 15:37] LABS: Prothrombin Time 10.8 Seconds (9.4-12.1)
[2017-07-20 15:39] LABS: Activated Partial Thrombo Time 31.2 Seconds (26.0-36.0)
[2017-07-20 15:45] LABS: BUN/Creatinine Ratio 16 (6-26); Blood Urea Nitrogen 16 mg/dL (8-26); Calcium 8.9 mg/dL (8.6-10.8); Carbon Dioxide 29 mEq/L (19-29); Chloride 105 mEq/L (98-109); Glucose 98 mg/dL (70-99); Magnesium 2.3 mg/dL (1.6-2.6); Osmolality,Calculated 293 (280-300); Potassium 4.4 mEq/L (3.5-4.5); Sodium 141 mEq/L (136-145); eGFR For African Americans > 60 (> 60); eGFR For Non-African Americans > 60 (> 60)
[2017-07-20 16:29] LABS: Thyroid Stimulating Hormone 2.775 mcIU/mL (0.350-4.840)
[2017-07-20 17:59] LABS: Bilirubin,Urine Negative (Negative); Blood,Urine Negative (Negative); Clarity,Urine Clear (Clear); Color,Urine Yellow (Yellow); Glucose,Urine (UA) Normal (Normal); Ketones,Urine Negative (Negative); Leukocyte Esterase,Urine Negative (Negative); Nitrite,Urine Negative (Negative); Protein,Urine Negative (Neg-Trace); Specific Gravity,Urine 1.018 (1.010-1.025); Urobilinogen,Urine Normal (Normal)
[2017-07-20] MEDS ORDERED: *HR* Morphine 2 MG/ML SYRINGE IVP PRN (22:06)
[2017-07-20] MEDS ORDERED: *HR* HYDROcodone/Acet 5/325 mg TABLET PO PRN (22:06)
[2017-07-20] MEDS ORDERED: Ondansetron 4 MG/2 ML VIAL IVP PRN (22:06)
[2017-07-20] MEDS ORDERED: Acetaminophen 325 MG TABLET PO PRN (22:06)
[2017-07-20] MEDS ORDERED: Naloxone 0.4 MG/ML INJ IVP PRN (22:08)
[2017-07-20] MEDS: Pantoprazole 40 MG VIAL IVP SCH (23:43)
--- NOTE | 2017-07-20 23:44 | Internal Med History&Physical ---
Date of Encounter: 07/21/17 Time of Encounter: 19:00 Assessment and Plan (1) Pre-syncope Current visit: Yes Status: Acute Patient reports having pre-syncopal episodes 4-5x daily Patient had Holter monitor placed recently which showed pause between beats which patient states he can feel prior to pre-syncopal episodes. He describes symptoms as room spinning, dizziness, and palpitations. Mr. Castillo also reports hitting his head in 1987 when he fell from his horse which he states started a hx of seizures. Patient denies hx of atrial fibrillation, TN, DVT, or PE. Patient denies CP or SOB. Patient is currently taking 81 mg aspirin for anticoagulation. Patient placed on continuous cardiac telemetry. TSH 2.775. Echocardiogram ordered. Bilateral carotid Doppler duplex imaging ordered d/t dizziness. Falls/safety precautions. Cardiology consult placed. Patient is at high risk for further morbidity based on unresolved pre-syncopal episodes; cardiac risk factors of HTN , HLD, and previous carotid endartectomies; and history and will be placed as observation status. (2) Heart palpitations Current visit: Yes Status: Acute Patient reports having Holter monitor placed recently which showed pause between beats which patient states he can feel prior to pre-syncopal episodes. Mr. Castillo also reports hitting his head in 1987 when he fell from his horse which he states started a hx of seizures. Patient denies hx of atrial fibrillation, TN, DVT, or PE. Patient denies CP or SOB. Patient is currently taking 81 mg aspirin for anticoagulation. Patient placed on continuous cardiac telemetry. Initial troponin 0.03. Will trend x1. TSH 2.775. (3) HTN (hypertension) Current visit: Yes Status: Chronic Hx of chronic HTN. Monitor patient vital signs. Continue patient's lisinopril. Qualifiers: Hypertension type: essential hypertension Qualified Code(s): I10 - Essential (primary) hypertension (4) HLD (hyperlipidemia) Current visit: Yes Status: Chronic Hx of chronic HLD. Lipid panel ordered a.m. labs. Continue patient's Lipitor. Qualifiers: Hyperlipidemia type: pure hypercholesterolemia Qualified Code(s): E78.00 - Pure hypercholesterolemia, unspecified; E78.0 - Pure hypercholesterolemia (5) DVT prophylaxis Current visit: Yes Status: Acute Heparin 5,000 units SQ Q8 for DVT prophylaxis. Internal Medicine - H&P: HPI Chief complaint: Dizziness/Pre-syncope/Palpitations Admitted From: Emergency Dept Plans for Post Hospital Care: Home History of present illness: Mr. Castillo is a 81 year old male with medical history of hyperlipidemia and hypertension presents from the ED with chief complaint of dizziness, presyncope , and palpitations for the past 2 months. Patient states when symptoms begin he feels the room is spinning. Patient reports having an accident while riding a horse in 1987 when he was thrown and struck his head. He reports having seizures after that point. He also reports symptoms occur approximately 4-5 times per day. Mr. castillo states he does not always lose consciousness because he is able to hear and see people during episodes. Patient denies history of DVT, PE, or CVA. Patient reports he is a former smoker smoking 1 pack per day and quitting in 1962. Patient denies any recent illness, fever, chills, nausea , vomiting, headache, changes in vision, abdominal pain, chest pain, numbness and tingling, neurological deficits, weakness, unusual bleeding, presyncope, or syncope. Past Med Surg Social Fam HX - Past Medical History Source: patient, old records reviewed Medical history: hyperlipidemia, hypertension Psychiatric history: no psych history - Past Surgical History Surgical History: carotid endarterectomy (Bilaterally) - Social History Smoking Status: Former smoker Packs per day: 1 PPD - Reports quitting in 1962 Smokeless Tobacco Status: No Alcohol use: rarely Drug use: none Current living situation: Home, With Family Activity Level: Independent ambulation Recent Out of Country Travel Within the Last 8 Weeks: No Exposure or Possible Exposure to Illness During Travel: No - Family History Father History Unknown: Yes Race: Family Member Ethnicity: Non- Living Status: Age at : 84 Cause of : Old age Mother Race: Family Member Ethnicity: Non- Living Status: Age at : 77 Cause of : Respiratory failure Hx Family Respiratory Disorders: Yes (Asthma) Brother Race: Family Member Ethnicity: Non- Living Status: Age at : 80 Cause of : Unknown Hx Family Respiratory Disorders: Yes (Asthma) Sister Race: Family Member Ethnicity: Non- Living Status: Age at : 81 Cause of : Unknown Hx Family Medical Disorders: No Internal Medicine - H&P: Meds Aspirin 81 mg PO DAILY 02/16/17 [History] Latanoprost [Xalatan] 1 drop BOTH EYES HS 03/22/17 [History] Omeprazole [PriLOSEC] 20 mg PO DAILY PRN 03/22/17 [History] Atorvastatin [Lipitor] 40 mg PO HS 07/20/17 [History] Lisinopril [Zestril] 10 mg PO DAILY 07/20/17 [History] 3 Allergy/AdvReac Type Severity Reaction Status Date / Time No Known Allergies Allergy Verified 03/22/17 06:53 All Systems PM: A 10-system review of systems was performed and is negative for pertinent findings except as documented above in the HPI. - Constitutional Constitutional: no chills, no fever(s), no night sweats - EENT Eyes: no change in vision, no discharge, no pain, no photophobia Ears: no ear discharge, no ear pain, no tinnitus Nose, mouth and throat: no dysphagia, no nasal discharge, no neck pain, no sore throat - Breasts Breasts: as per HPI - Cardiovascular Cardiovascular ROS IM: as per HPI, palpitations, other (Pre-syncope) - Respiratory Respiratory: no cough, no dyspnea, no wheezing, no excessive phlegm production - Gastrointestinal Gastrointestinal: no abdominal pain, no diarrhea, no hematemesis, no hematochezia, no melena, no nausea, no vomiting - Genitourinary Genitourinary ROS male: as per HPI - Musculoskeletal Musculoskeletal ROS IM: no numbness, no tingling - Integumentary Integumentary IM: no rash, no unusual bruising - Neurological Neurological ROS: as per HPI, dizziness, no confusion, no convulsions, no focal weakness, no numbness, no tingling, no tremor(s) - Psychiatric Psychiatric: as per HPI - Endocrine Endocrine IM: as per HPI - Hematologic/Lymphatic Hematologic/Lymphatic: no easy bruising - Allergic/Immunologic Allergic/Immunologic: as per HPI - Constitutional Vitals: Temp Pulse Resp BP Pulse Ox 98.3 F 58 17 138/71 95 07/20/17 22:39 07/20/17 22:39 07/20/17 22:39 07/20/17 22:45 07/20/17 22:39 General appearance: Present: cooperative, A&O X 3, morbidly obese, pleasant, no acute distress, answers questions appropriately - Head Head exam: Present: atraumatic, normocephalic - Eye Eye exam: Present: PERRL, conjuntiva pink, sclera anicteric Pupils: Present: PERRL - ENT ENT exam: Present: normal exam - Neck Neck exam general surgery: Present: normal inspection, supple, trachea midline. Absent: lymphadenopathy - Respiratory Respiratory exam: Present: CTAB. Absent: accessory muscle use, rales, rhonchi, wheezes - Cardiovascular Cardiovascular exam: Present: RRR, +S1, +S2. Absent: diastolic murmur, gallop, rubs, systolic murmur - GI/Abdominal GI/Abdominal exam: Present: normal bowel sounds, soft, no peritoneal signs. Absent: distended, tenderness - Rectal Rectal exam: Present: deferred - Additional comments: exam deferred. - Extremities Exam Extremities exam: Present: warm, radial pulses palpable and symmetrical. Absent : calf tenderness, cyanotic, pedal edema - Back Exam Back exam: Present: normal inspection - Neurological Exam Neurological exam: Present: CN II-XII intact, oriented X3, no focal deficits. Absent: pronater drift, facial droop, speech deficit - Psychiatric Psychiatric exam: Present: normal affect, normal mood - Skin Skin exam: Present: dry, intact Internal Med - H&P Results - Labs CBC & Chem 7: 07/20/17 15:15 07/20/17 15:15 Labs: Cardiac Enzymes 07/20/17 Range/Units 22:49 Troponin I 0.03 (0-0.03) ng/mL - EKG Data EKG shows normal: sinus rhythm - EKG Data Prior EKG available for review: no EKG comments: 07/21/17 00:51 EKG dated 07/20/17 shows sinus rhythm with first-degree AV block. - Diagnostic Studies Chest x-ray Additional comments: Impressions Chest X-Ray 07/20/17 14:53 IMPRESSION: No evidence of acute disease. D/ / Ezequiel Feliciano MD / Ezequiel Feliciano MD Interpreting Provider: Ezequiel Feliciano MD
[2017-07-21 05:48] LABS: Basophils % 0.6 %; Eosinophils # 0.4 K/mcL (0.0-0.6); Eosinophils % 8.5 %; Hematocrit 38.3 % (37.5-50.1); Hemoglobin 12.3 g/dL (12.9-16.9); Immature Granulocytes % 0.2 % (0-4); Lymphocytes # 1.3 K/mcL (0.6-4.6); Lymphocytes % 25.4 %; Mean Corpuscular HGB Conc 32.1 g/dL (31.6-35.5); Mean Corpuscular Hemoglobin 28.3 pg (28.0-33.3); Mean Platelet Volume 9.7 fL (9.4-12.4); Monocytes # 0.6 K/mcL (0.0-1.3); Monocytes % 12.2 %; Neutrophils # 2.7 K/mcL (1.6-8.9); Platelet Count 214 K/mcL (140-400); Red Blood Count 4.35 M/mcL (4.19-5.50); Red Cell Distribution Width 15.2 % (11.5-14.5); Segmented Neutrophils % 53.1 %
[2017-07-21 05:59] LABS: Activated Partial Thrombo Time 30.4 Seconds (26.0-36.0)
[2017-07-21 06:00] LABS: Prothrombin Time 10.4 Seconds (9.4-12.1)
[2017-07-21 06:05] LABS: Hemoglobin A1C 5.6 %
[2017-07-21] MEDS: *HR* Heparin 5,000 UNIT/ML VIAL SQ SCH ×3 (06:15→22:18)
[2017-07-21 06:24] LABS: Alanine Aminotransferase 18 Units/L (0-55); Albumin 3.4 g/dL (3.5-5.0); Albumin/Globulin Ratio 1.2 (1.1-2.2); Alkaline Phosphatase 54 Units/L (38-126); Aspartate Amino Transferase 16 Units/L (5-34); BUN/Creatinine Ratio 15 (6-26); Bilirubin,Total 0.3 mg/dL (0.2-1.2); Blood Urea Nitrogen 15 mg/dL (8-26); Calcium 8.7 mg/dL (8.6-10.8); Carbon Dioxide 30 mEq/L (19-29); Chloride 106 mEq/L (98-109); Cholesterol 127 mg/dL (< 200); Globulin 2.8 g/dL (2.4-3.5); Glucose 90 mg/dL (70-99); HDL Cholesterol 43 mg/dL (40-59); LDL Cholesterol,Calculated 69 mg/dL (0-99); Osmolality,Calculated 292 (280-300); Potassium 4.4 mEq/L (3.5-4.5); Sodium 141 mEq/L (136-145); Total Protein 6.2 g/dL (6.0-8.3); Triglycerides 75 mg/dL (< 150); eGFR For African Americans > 60 (> 60); eGFR For Non-African Americans > 60 (> 60)
[2017-07-21] MEDS: Pantoprazole 40 MG VIAL IVP SCH (08:56)
[2017-07-21] MEDS: Aspirin 81 MG TAB.CHEW PO SCH (08:56)
--- NOTE | 2017-07-21 11:45 | Cardiology Consult Note ---
Date of Encounter: 07/21/17 Time of Encounter: 11:42 Assessment and Plan (1) Sinus pause Current Visit: Yes Status: Acute Holter monitor read yesterday showed pauses up to 5.3 seconds--pt was called to come to ED. Pt reports symptoms of presyncope and dizziness on a daily basis. Per , he has syncopal events--loses consciousness for 30 seconds associated with drooling. Pt is not on AV brit blockers--avoid. Electrolytes and TSH within normal range. Check echo to evaluate structure and function. Continues to have these symptoms s/p bilateral CEAs this summer. Pt warrants PPM. Timing will depend on Echo results and tele monitoring. (2) Syncope Current Visit: Yes Status: Acute As above. Orthostatic BP negative. Qualifiers: Syncope type: unspecified Qualified Code(s): R55 - Syncope and collapse Discussion w patient/family: The assessment and plan as outlined above was discussed with the patient and/or family members who expressed understanding and agreement. All questions were answered. Thank you for involving us in the care of your patient. Please call with any questions. I will discuss all the above with Dr. Janel Tillman and make changes as necessary. History of Present Illness Consult date: 07/21/17 Requesting physician: Master Laura Consult reason: Pauses on holter Chief complaint: syncope, dizziness, presyncope History of present illness: Mr. Benites is a 81 year old male with medical history of bilateral carotid stenosis s/p bilateral CEAs this year, hyperlipidemia and hypertension presents from the ED with chief complaint of dizziness, presyncope, and palpitations for the past 2 months. Patient states when symptoms begin he feels the room is spinning. Patient reports having an accident while riding a horse in 1987 when he was thrown and struck his head. He reports having seizures after that point. He also reports symptoms occur on a daily basis. Mr. benites states he does not always lose consciousness because he is able to hear and see people during episodes. However, reports he loses consciousness for approximately 30 seconds associated with drooling. He states episodes frequently occur just sitting at breakfast and he does report dizziness/ episodes that occur upon standing. No cardiac hx. Pt denies any dizziness since being admitted. He was called to come in for abnormal holter with pauses up to 5.3 seconds. He denies chest pain or dyspnea. Past Med Surg Social Fam HX - Past Medical History Medical history: hyperlipidemia, hypertension Psychiatric history: no psych history - Past Surgical History Surgical History: no surgical history, carotid endarterectomy - Social History Smoking Status: Former smoker Packs per day: 1 PPD - Reports quitting in 1962 Smokeless Tobacco Status: No Alcohol use: rarely Drug use: none - Family History Father History Unknown: Yes Race: Family Member Ethnicity: Non- Living Status: Age at : 84 Cause of : Old age Mother Race: Family Member Ethnicity: Non- Living Status: Age at : 77 Cause of : Respiratory failure Hx Family Respiratory Disorders: Yes (Asthma) Brother Race: Family Member Ethnicity: Non- Living Status: Age at : 80 Cause of : Unknown Hx Family Respiratory Disorders: Yes (Asthma) Sister Race: Family Member Ethnicity: Non- Living Status: Age at : 81 Cause of : Unknown Hx Family Medical Disorders: No Medications and Allergies Aspirin 81 mg PO DAILY 02/16/17 [History] Latanoprost [Xalatan] 1 drop BOTH EYES HS 03/22/17 [History] Omeprazole [PriLOSEC] 20 mg PO DAILY PRN 03/22/17 [History] Atorvastatin [Lipitor] 40 mg PO HS 07/20/17 [History] Lisinopril [Zestril] 10 mg PO DAILY 07/20/17 [History] 3 Allergy/AdvReac Type Severity Reaction Status Date / Time No Known Allergies Allergy Verified 03/22/17 06:53 All Systems Review: A 10-system review of systems was performed and is negative for pertinent findings except as documented above in the HPI. - Cardiovascular Cardiovascular: as per HPI, lightheadedness, syncope - Neurological Neurological: dizziness, syncope Physical Examination Vital Signs, Last 4 Hours Temp Pulse Resp BP Pulse Ox 07/21/17 11:29 97.7 F 52 16 125/74 95 Vital Signs Temp Pulse Resp BP BP BP BP 07/21/17 11:29 97.7 F 52 16 125/74 07/21/17 06:48 98.0 F 63 18 160/83 07/21/17 02:54 97.9 F 58 17 144/66 07/20/17 22:45 138/71 149/71 148/73 07/20/17 22:39 98.3 F 58 17 139/75 07/20/17 19:13 98.0 F 71 20 169/83 07/20/17 18:45 16 175/98 07/20/17 17:30 57 16 165/80 07/20/17 17:00 60 16 152/81 07/20/17 16:30 60 16 153/83 07/20/17 16:00 60 16 147/79 07/20/17 15:30 67 16 138/79 07/20/17 15:00 72 16 140/79 07/20/17 14:52 98.5 F 67 16 152/76 Pulse Ox 07/21/17 11:29 95 07/21/17 06:48 97 07/21/17 02:54 94 07/20/17 22:45 07/20/17 22:39 95 07/20/17 19:13 95 07/20/17 18:45 07/20/17 17:30 96 07/20/17 17:00 96 07/20/17 16:30 96 07/20/17 16:00 96 07/20/17 15:30 96 07/20/17 15:00 96 07/20/17 14:52 96 Intake and Output 07/20/17 07/21/17 07/21/17 23:59 07:59 15:59 Intake Total 240 / 240 Output Total 150 / 150 500 / 500 Balance -150 / -150 -500 / -500 240 / 240 Intake: Oral 240 / 240 Output: Urine 150 / 150 500 / 500 Other: Meal Breakfast Percent of Meal Consumed 100% # Voids 1 Weight 68.13 kg 67.721 kg Patient Weight 07/21/17 23:59 Weight 67.721 kg General: Conversant, No Apparent Distress HEENT: Atraumatic, Normocephaly, Mucus Membranes Moist Neck: No JVD, Normal carotid pulses Cardiac: Reg Rate and Rhythm, Normal S1 and S2, No Murmur Lungs: Normal Breath Sounds, No Wheeze, Rales, Rhonchi Neuro: Alert and responsive, No focal deficits noted Abdomen: Soft, Non-Tender Skin: No rashes noted on visualized skin Musculoskeletal: No Chest Wall Tenderness Extremities: No Clubbing, No Cyanosis, No Edema, Normal Pulses Results 07/21/17 05:24 07/21/17 05:24 Lab Results 07/20/17 07/21/17 07/21/17 22:49 05:24 05:24 WBC 5.1 Hgb 12.3 L Hct 38.3 Plt Count 214 INR 1.0 APTT 30.4 Sodium Potassium Chloride Carbon Dioxide BUN Creatinine Glucose Calcium Total Bilirubin AST ALT Alkaline Phosphatase Troponin I 0.03 07/21/17 07/21/17 05:24 05:24 WBC Hgb Hct Plt Count INR APTT Sodium 141 Potassium 4.4 Chloride 106 Carbon Dioxide 30 H BUN 15 Creatinine 1.00 Glucose 90 Calcium 8.7 Total Bilirubin 0.3 AST 16 ALT 18 Alkaline Phosphatase 54 Troponin I 0.02 Short CBC 07/21/17 07/20/17 Range/Units 05:24 15:15 WBC 5.1 4.3 (4.3-11.1) K/mcL Hgb 12.3 L 13.0 (12.9-16.9) g/dL Hct 38.3 40.3 (37.5-50.1) % Plt Count 214 231 (140-400) K/mcL Neutrophils # 2.7 2.0 (1.6-8.9) K/mcL BMP 07/21/17 07/20/17 Range/Units 05:24 15:15 Sodium 141 141 (136-145) mEq/L Potassium 4.4 4.4 (3.5-4.5) mEq/L Chloride 106 105 (98-109) mEq/L Carbon Dioxide 30 H 29 (19-29) mEq/L BUN 15 16 (8-26) mg/dL Creatinine 1.00 1.02 (0.72-1.25) mg/dL Glucose 90 98 (70-99) mg/dL Calcium 8.7 8.9 (8.6-10.8) mg/dL Cardiac Enzymes 07/21/17 07/20/17 07/20/17 Range/Units 05:24 22:49 15:15 Troponin I 0.02 0.03 0.03 (0-0.03) ng/mL Liver Function 07/21/17 Range/Units 05:24 Total Bilirubin 0.3 (0.2-1.2) mg/dL AST 16 (5-34) Units/L ALT 18 (0-55) Units/L Alkaline Phosphatase 54 (38-126) Units/L Albumin 3.4 L (3.5-5.0) g/dL Urine 07/20/17 Range/Units 17:48 Urine Color Yellow (Yellow) Urine Clarity Clear (Clear) Urine pH 7.0 (5.0-8.0) pH Units Ur Specific [place] 1.018 (1.010-1.025) Urine Protein Negative (Neg-Trace) mg/dL Urine Glucose (UA) Normal (Normal) mg/dL Impressions Chest X-Ray 07/20/17 14:53 IMPRESSION: No evidence of acute disease. D/ / Ezequiel Feliciano MD / Ezequiel Feliciano MD Interpreting Provider: Ezequiel Feliciano MD Active Medications Acetaminophen (Tylenol) 650 mg PO Q6HR PRN PRN Reason: Mild Pain (1-3) Stop: 01/19/18 22:07 Hydrocodone Bitart/Acetaminophen ([place] 5-325 Mg) 1 tab PO Q4HR PRN PRN Reason: Moderate Pain (4-6) Stop: 01/19/18 22:07 Aspirin (Aspirin) 81 mg PO DAILY [facility] Stop: 01/20/18 09:01 Last Admin: 07/21/17 08:56 Dose: 81 mg Atorvastatin Calcium (Lipitor) 40 mg PO HS [facility] Stop: 01/20/18 21:01 Heparin Sodium (Porcine) (Heparin) 5,000 unit SQ Q8HCO [facility] Stop: 01/20/18 06:01 Last Admin: 07/21/17 06:15 Dose: Not Given Latanoprost (Xalatan) 1 drop BOTH EYES HS [facility] PRN Reason: Protocol Stop: 01/20/18 21:01 Lisinopril (Zestril) 10 mg PO DAILY [facility] PRN Reason: Protocol Stop: 01/20/18 09:01 Last Admin: 07/21/17 08:56 Dose: 10 mg Morphine Sulfate (Morphine Sulfate) 2 mg IVP Q4HR PRN PRN Reason: Severe Pain (7-10) Stop: 01/19/18 22:07 Naloxone HCl (Narcan) 0.4 mg IVP Q2MIN PRN PRN Reason: Opioid Reversal Stop: 01/19/18 22:09 Ondansetron HCl (Zofran) 4 mg IVP Q8HR PRN PRN Reason: Nausea And Vomiting Stop: 01/19/18 22:07 Pantoprazole Sodium (Protonix) 40 mg IVP DAILY [facility] Stop: 01/19/18 22:16 Last Admin: 07/21/17 08:56 Dose: 40 mg - EKG Interpretation EKG results cardiology: personally reviewed (SR 1st degree block), other (12 hr tele AVG HR 72, SR, longest pause 2.6 seconds.) Consult Discharge Plan - Plan Referrals: Juanito Santana MD [Primary Care Provider] -
--- NOTE | 2017-07-21 18:20 | Internal Med Progress Note ---
Date of Encounter: 07/21/17 Time of Encounter: 11:00 - Assessment and plan (1) Syncope Current Visit: Yes Status: Acute Assessment and plan: -Patient with multiple syncopal events over past 6 months. -Cardiology consult and Holter monitor demonstrated multiple sinus pauses up to 5.3 seconds. Conditions for permanent pacemaker on Sunday. Qualifiers: Syncope type: unspecified Qualified Code(s): R55 - Syncope and collapse (2) HTN (hypertension) Current Visit: Yes Status: Chronic Assessment and plan: -Controlled; continue home medications Qualifiers: Hypertension type: essential hypertension Qualified Code(s): I10 - Essential (primary) hypertension (3) HLD (hyperlipidemia) Current Visit: Yes Status: Chronic Assessment and plan: -Continue statin Qualifiers: Hyperlipidemia type: pure hypercholesterolemia Qualified Code(s): E78.00 - Pure hypercholesterolemia, unspecified; E78.0 - Pure hypercholesterolemia (4) DVT prophylaxis Current Visit: Yes Status: Acute Assessment and plan: -Continue subcutaneous heparin - Subjective Interval history: No acute events overnight. - Constitutional Vitals: Temp Pulse Resp BP Pulse Ox 98.1 F 76 16 125/64 93 07/21/17 15:17 07/21/17 15:17 07/21/17 15:17 07/21/17 15:17 07/21/17 15:17 General appearance: Present: cooperative, A&O X 3, morbidly obese, pleasant, no acute distress, answers questions appropriately - Respiratory Respiratory exam: Present: CTAB. Absent: accessory muscle use, rales, rhonchi, wheezes - Cardiovascular Cardiovascular exam: Present: RRR, +S1, +S2. Absent: diastolic murmur, gallop, rubs, systolic murmur Internal Medicine: Result - Labs CBC & Chem 7: 07/21/17 05:24 07/21/17 05:24 Labs: Short CBC 07/21/17 Range/Units 05:24 WBC 5.1 (4.3-11.1) K/mcL Hgb 12.3 L (12.9-16.9) g/dL Hct 38.3 (37.5-50.1) % Plt Count 214 (140-400) K/mcL Neutrophils # 2.7 (1.6-8.9) K/mcL BMP 07/21/17 05:24 Sodium 141 Potassium 4.4 Chloride 106 Carbon Dioxide 30 H BUN 15 Creatinine 1.00 Glucose 90 Calcium 8.7 Cardiac Enzymes 07/20/17 07/21/17 Range/Units 22:49 05:24 Troponin I 0.03 0.02 (0-0.03) ng/mL Liver Function 07/21/17 Range/Units 05:24 Total Bilirubin 0.3 (0.2-1.2) mg/dL AST 16 (5-34) Units/L ALT 18 (0-55) Units/L Alkaline Phosphatase 54 (38-126) Units/L Albumin 3.4 L (3.5-5.0) g/dL - ABG Interpretation ABG results: PT/INR, D-dimer PT 10.4 Seconds (9.4-12.1) 07/21/17 05:24 - Impressions Impressions Echocardiogram 07/20/17 22:14 Impressions: LVEF 60-65%. Normal left ventricular size and systolic function. Normal right ventricular size and function. No significant valvular dysfunction. No pulmonary hypertension. Left Ventricular Wall Motion: Rest Echo Findings All wall segments showed normal motion. Findings: Study Quality * Technically adequate exam. ECG Findings * Normal sinus rhythm. Left Ventricle * LVEF 60-65%. * Normal LV chamber size, wall thickness and function. * Basal septal hypertrophy with no LVOT obstruction * Mild left ventricular diastolic dysfunction. Right Ventricle * Normal right ventricular structure and function. Left Atrium * Normal left atrial size. Right Atrium * Normal right atrial size. Interatrial Septum * Interatrial septum not well evaluated. Aortic Valve * Trileaflet aortic valve. * Normal aortic valve structure. * No aortic stenosis. * Trace aortic regurgitation. Mitral Valve * Normal mitral valve structure and function. * No mitral stenosis. * Trace mitral regurgitation. Tricuspid Valve * Normal tricuspid valve structure. * Trace tricuspid regurgitation. * No evidence of pulmonary hypertension. Pulmonic Valve * Pulmonic valve not well visualized. Aorta * Normally sized aortic root. Pericardium * The pericardium appears normal. IVC * Normal IVC dimensions and inspiratory collapse. Consult Discharge Plan - Plan Referrals: Juanito Santana MD [Primary Care Provider] -
[2017-07-22] MEDS: Latanoprost 2.5 ML BOTTLE BOTH EYES SCH ×2 (03:00→21:06)
[2017-07-22] MEDS: *HR* Heparin 5,000 UNIT/ML VIAL SQ SCH ×2 (04:14→17:22)
[2017-07-22 05:30] LABS: Basophils % 0.4 %; Eosinophils # 0.4 K/mcL (0.0-0.6); Eosinophils % 7.8 %; Hematocrit 37.4 % (37.5-50.1); Hemoglobin 11.9 g/dL (12.9-16.9); Immature Granulocytes % 0.2 % (0-4); Lymphocytes # 1.3 K/mcL (0.6-4.6); Lymphocytes % 23.4 %; Mean Corpuscular HGB Conc 31.8 g/dL (31.6-35.5); Mean Corpuscular Hemoglobin 28.1 pg (28.0-33.3); Mean Corpuscular Volume 88.4 fL (83.0-100.0); Monocytes # 0.7 K/mcL (0.0-1.3); Monocytes % 13.3 %; Platelet Count 211 K/mcL (140-400); Red Blood Count 4.23 M/mcL (4.19-5.50); Red Cell Distribution Width 15.4 % (11.5-14.5); Segmented Neutrophils % 54.9 %
[2017-07-22 05:58] LABS: Alanine Aminotransferase 18 Units/L (0-55); Albumin 3.1 g/dL (3.5-5.0); Albumin/Globulin Ratio 1.1 (1.1-2.2); Alkaline Phosphatase 49 Units/L (38-126); Aspartate Amino Transferase 15 Units/L (5-34); BUN/Creatinine Ratio 16 (6-26); Bilirubin,Total 0.3 mg/dL (0.2-1.2); Blood Urea Nitrogen 17 mg/dL (8-26); Calcium 8.5 mg/dL (8.6-10.8); Carbon Dioxide 29 mEq/L (19-29); Chloride 106 mEq/L (98-109); Globulin 2.7 g/dL (2.4-3.5); Glucose 92 mg/dL (70-99); Osmolality,Calculated 293 (280-300); Potassium 4.2 mEq/L (3.5-4.5); Sodium 141 mEq/L (136-145); Total Protein 5.8 g/dL (6.0-8.3); eGFR For African Americans > 60 (> 60); eGFR For Non-African Americans > 60 (> 60)
[2017-07-22] MEDS: Pantoprazole 40 MG VIAL IVP SCH (09:23)
[2017-07-22] MEDS: Aspirin 81 MG TAB.CHEW PO SCH (09:23)
--- NOTE | 2017-07-22 10:33 | Cardiology Progress Note ---
Date of Encounter: 07/22/17 Time of Encounter: 10:30 Assessment and Plan (1) Sick sinus syndrome Current Visit: Yes Status: Acute (2) Syncope Current Visit: Yes Status: Acute Likely secondary to sinus pauses. Will need pacemaker, have discussed risks and benefits, he agrees. Qualifiers: Syncope type: unspecified Qualified Code(s): R55 - Syncope and collapse Discussion w patient/family: The assessment and plan as outlined above was discussed with the patient and/or family members who expressed understanding and agreement. All questions were answered. Thank you for involving us in the care of your patient. Please call with any questions. Subjective Principal diagnosis: Sick sinus syndrome Interval history: Had an episode of dizziness this AM associated with a pause on telemetry. Objective Vital Signs, Last 4 Hours Temp Pulse Resp BP Pulse Ox 07/22/17 08:29 97.7 F 79 16 112/58 97 General: Conversant, No Apparent Distress HEENT: Atraumatic, Normocephaly, Mucus Membranes Moist Neck: No JVD, Normal carotid pulses Cardiac: Reg Rate and Rhythm, Normal S1 and S2, No Murmur Lungs: Normal Breath Sounds, No Wheeze, Rales, Rhonchi Neuro: Alert and responsive, No focal deficits noted Abdomen: Soft, Non-Tender Musculoskeletal: No Chest Wall Tenderness Results 07/22/17 03:06 07/22/17 03:06 Lab Results 07/22/17 07/22/17 03:06 03:06 WBC 5.5 Hgb 11.9 L Hct 37.4 L Plt Count 211 Sodium 141 Potassium 4.2 Chloride 106 Carbon Dioxide 29 BUN 17 Creatinine 1.09 Glucose 92 Calcium 8.5 L Total Bilirubin 0.3 AST 15 ALT 18 Alkaline Phosphatase 49 Consult Discharge Plan - Plan Referrals: Juanito Santana MD [Primary Care Provider] -
--- NOTE | 2017-07-22 11:10 | Electrocardiograph Report ---
[place] [id number] Test Date: 2017-07-20 Pat Name: Kolby Benites Department: 103 Room: 3B11 Gender: M [employer]: : 1935 Requested By: Lance Palma Order Number: [id number] Reading MD: Lance Tillman Measurements Intervals [place] Rate: 68 P: -33 AR: 313 QRS: 49 QRSD: 88 T: 23 QT: 390 QTc: 407 Interpretive Statements SINUS RHYTHM WITH FIRST DEGREE AV BLOCK Electronically Signed On 07-22-2017 11:08:29 EDT by Lance Tillman
--- NOTE | 2017-07-22 17:51 | Internal Med Progress Note ---
Date of Encounter: 07/22/17 Time of Encounter: 12:00 - Assessment and plan (1) Syncope Current Visit: Yes Status: Acute Assessment and plan: -Patient with multiple syncopal events over past 6 months. -Cardiology consult and Holter monitor demonstrated multiple sinus pauses up to 5.3 seconds. -Recommendations for permanent pacemaker on Sunday. Qualifiers: Syncope type: unspecified Qualified Code(s): R55 - Syncope and collapse (2) HTN (hypertension) Current Visit: Yes Status: Chronic Assessment and plan: -Controlled; continue home medications Qualifiers: Hypertension type: essential hypertension Qualified Code(s): I10 - Essential (primary) hypertension (3) HLD (hyperlipidemia) Current Visit: Yes Status: Chronic Assessment and plan: -Continue statin Qualifiers: Hyperlipidemia type: pure hypercholesterolemia Qualified Code(s): E78.00 - Pure hypercholesterolemia, unspecified; E78.0 - Pure hypercholesterolemia (4) DVT prophylaxis Current Visit: Yes Status: Acute Assessment and plan: -Continue subcutaneous heparin - Subjective Interval history: No acute events overnight and patient resting comfortably in the bed this afternoon with no issues or complaints. - Constitutional Vitals: Temp Pulse Resp BP Pulse Ox 97.6 F 70 18 118/67 92 07/22/17 15:23 07/22/17 16:06 07/22/17 15:23 07/22/17 16:06 07/22/17 15:23 General appearance: Present: cooperative, A&O X 3, morbidly obese, pleasant, no acute distress, answers questions appropriately - Respiratory Respiratory exam: Present: CTAB. Absent: respiratory distress - Cardiovascular Cardiovascular exam: Present: RRR, +S1, +S2. Absent: diastolic murmur, gallop, rubs, systolic murmur Internal Medicine: Result - Labs CBC & Chem 7: 07/22/17 03:06 07/22/17 03:06 Labs: Short CBC 07/22/17 Range/Units 03:06 WBC 5.5 (4.3-11.1) K/mcL Hgb 11.9 L (12.9-16.9) g/dL Hct 37.4 L (37.5-50.1) % Plt Count 211 (140-400) K/mcL Neutrophils # 3.0 (1.6-8.9) K/mcL BMP 07/22/17 03:06 Sodium 141 Potassium 4.2 Chloride 106 Carbon Dioxide 29 BUN 17 Creatinine 1.09 Glucose 92 Calcium 8.5 L Liver Function 07/22/17 Range/Units 03:06 Total Bilirubin 0.3 (0.2-1.2) mg/dL AST 15 (5-34) Units/L ALT 18 (0-55) Units/L Alkaline Phosphatase 49 (38-126) Units/L Albumin 3.1 L (3.5-5.0) g/dL - ABG Interpretation ABG results: PT/INR, D-dimer PT 10.4 Seconds (9.4-12.1) 07/21/17 05:24 Consult Discharge Plan - Plan Referrals: Juanito Santana MD [Primary Care Provider] -
[2017-07-23] MEDS: *HR* Heparin 5,000 UNIT/ML VIAL SQ SCH ×4 (00:12→22:28)
[2017-07-23 05:02] LABS: Basophils % 0.5 %; Eosinophils # 0.4 K/mcL (0.0-0.6); Eosinophils % 6.1 %; Hematocrit 37.8 % (37.5-50.1); Hemoglobin 12.1 g/dL (12.9-16.9); Immature Granulocytes % 0.2 % (0-4); Lymphocytes # 1.6 K/mcL (0.6-4.6); Lymphocytes % 27.6 %; Mean Corpuscular Hemoglobin 28.3 pg (28.0-33.3); Mean Corpuscular Volume 88.3 fL (83.0-100.0); Mean Platelet Volume 9.7 fL (9.4-12.4); Monocytes # 0.7 K/mcL (0.0-1.3); Monocytes % 12.9 %; Platelet Count 207 K/mcL (140-400); Red Blood Count 4.28 M/mcL (4.19-5.50); Red Cell Distribution Width 15.4 % (11.5-14.5); Segmented Neutrophils % 52.7 %
[2017-07-23 05:17] LABS: Alanine Aminotransferase 15 Units/L (0-55); Albumin 3.1 g/dL (3.5-5.0); Alkaline Phosphatase 49 Units/L (38-126); Aspartate Amino Transferase 15 Units/L (5-34); BUN/Creatinine Ratio 17 (6-26); Bilirubin,Total 0.3 mg/dL (0.2-1.2); Blood Urea Nitrogen 19 mg/dL (8-26); Calcium 8.3 mg/dL (8.6-10.8); Carbon Dioxide 29 mEq/L (19-29); Chloride 106 mEq/L (98-109); Glucose 119 mg/dL (70-99); Osmolality,Calculated 295 (280-300); Potassium 3.9 mEq/L (3.5-4.5); Sodium 141 mEq/L (136-145); Total Protein 6.1 g/dL (6.0-8.3); eGFR For African Americans > 60 (> 60); eGFR For Non-African Americans > 60 (> 60)
[2017-07-23] MEDS: Pantoprazole 40 MG VIAL IVP SCH (09:15)
[2017-07-23] MEDS: Aspirin 81 MG TAB.CHEW PO SCH (09:15)
--- NOTE | 2017-07-23 10:31 | Cardiology Progress Note ---
Date of Encounter: 07/23/17 Time of Encounter: 10:30 Assessment and Plan (1) Sinus pause Current Visit: Yes Status: Acute Holter monitor outpt showed pauses up to 5.3 seconds--pt was called to come to ED. Pt reports symptoms of presyncope and dizziness on a daily basis. Per , he has syncopal events--loses consciousness for 30 seconds associated with drooling. Pt is not on AV brit blockers--avoid. Electrolytes and TSH within normal range. Echo with preserved EF, no significant findings. Continues to have these symptoms s/p bilateral CEAs this summer. Sinus pauses up to 4.6 seconds overnight--dizziness and presyncope while inpt. Pt warrants PPM, plan for tomorrow. R/B/A discussed, pt agrees. (2) Syncope Current Visit: Yes Status: Acute As above, Likely secondary to sinus pauses. Will need pacemaker, have discussed risks and benefits, he agrees. Qualifiers: Syncope type: unspecified Qualified Code(s): R55 - Syncope and collapse Discussion w patient/family: The assessment and plan as outlined above was discussed with the patient and/or family members who expressed understanding and agreement. All questions were answered. Thank you for involving us in the care of your patient. Please call with any questions. I will discuss all the above with Dr. Elias and make changes as necessary. Subjective Principal diagnosis: Sick sinus syndrome Interval history: Sinus pauses up to 4.6 seconds overnight. Pt endorses dizziness/presyncope overnight, but denies syncope. Objective Vital Signs, Last 4 Hours Temp Pulse Resp BP Pulse Ox 07/23/17 07:07 97.4 F L 71 15 137/67 95 Vital Signs Temp Pulse Pulse Pulse Pulse Resp BP 07/23/17 07:07 97.4 F L 71 15 137/67 07/23/17 02:47 98.0 F 68 16 130/73 07/22/17 22:39 98.1 F 65 16 135/73 07/22/17 19:33 98.2 F 74 16 125/70 07/22/17 16:06 70 76 85 07/22/17 15:23 97.6 F 73 18 112/61 07/22/17 11:37 97.6 F 69 18 118/66 BP BP BP Pulse Ox 07/23/17 07:07 95 07/23/17 02:47 96 07/22/17 22:39 94 07/22/17 19:33 97 07/22/17 16:06 118/67 110/66 107/67 07/22/17 15:23 92 07/22/17 11:37 94 Intake and Output 07/22/17 07/23/17 07/23/17 23:59 07:59 15:59 Intake Total 700 / 700 Balance 700 / 700 Intake: Oral 700 / 700 Other: Meal Dinner Breakfast Percent of Meal Consumed 100% 100% Weight 67.723 kg Patient Weight 07/23/17 23:59 Weight 67.723 kg General: Conversant, No Apparent Distress HEENT: Atraumatic, Normocephaly, Mucus Membranes Moist Neck: No JVD, Normal carotid pulses Cardiac: Reg Rate and Rhythm, Normal S1 and S2, No Murmur Lungs: Normal Breath Sounds, No Wheeze, Rales, Rhonchi Neuro: Alert and responsive, No focal deficits noted Abdomen: Soft, Non-Tender Skin: No rashes noted on visualized skin Musculoskeletal: No Chest Wall Tenderness Extremities: No Clubbing, No Cyanosis, No Edema, Normal Pulses Results 07/23/17 04:27 07/23/17 04:27 Lab Results 07/23/17 07/23/17 04:27 04:27 WBC 5.7 Hgb 12.1 L Hct 37.8 Plt Count 207 Sodium 141 Potassium 3.9 Chloride 106 Carbon Dioxide 29 BUN 19 Creatinine 1.10 Glucose 119 H Calcium 8.3 L Total Bilirubin 0.3 AST 15 ALT 15 Alkaline Phosphatase 49 Short CBC 07/23/17 Range/Units 04:27 WBC 5.7 (4.3-11.1) K/mcL Hgb 12.1 L (12.9-16.9) g/dL Hct 37.8 (37.5-50.1) % Plt Count 207 (140-400) K/mcL Neutrophils # 3.0 (1.6-8.9) K/mcL BMP 07/23/17 Range/Units 04:27 Sodium 141 (136-145) mEq/L Potassium 3.9 (3.5-4.5) mEq/L Chloride 106 (98-109) mEq/L Carbon Dioxide 29 (19-29) mEq/L BUN 19 (8-26) mg/dL Creatinine 1.10 (0.72-1.25) mg/dL Glucose 119 H (70-99) mg/dL Calcium 8.3 L (8.6-10.8) mg/dL Liver Function 07/23/17 Range/Units 04:27 Total Bilirubin 0.3 (0.2-1.2) mg/dL AST 15 (5-34) Units/L ALT 15 (0-55) Units/L Alkaline Phosphatase 49 (38-126) Units/L Albumin 3.1 L (3.5-5.0) g/dL Active Medications Acetaminophen (Tylenol) 650 mg PO Q6HR PRN PRN Reason: Mild Pain (1-3) Stop: 01/19/18 22:07 Hydrocodone Bitart/Acetaminophen ([place] 5-325 Mg) 1 tab PO Q4HR PRN PRN Reason: Moderate Pain (4-6) Stop: 01/19/18 22:07 Aspirin (Aspirin) 81 mg PO DAILY [facility] Stop: 01/20/18 09:01 Last Admin: 07/23/17 09:15 Dose: 81 mg Atorvastatin Calcium (Lipitor) 40 mg PO HS [facility] Stop: 01/20/18 21:01 Last Admin: 07/22/17 21:06 Dose: 40 mg Heparin Sodium (Porcine) (Heparin) 5,000 unit SQ Q8HCO [facility] Stop: 01/20/18 06:01 Last Admin: 07/23/17 04:52 Dose: Not Given Latanoprost (Xalatan) 1 drop BOTH EYES HS [facility] PRN Reason: Protocol Stop: 01/20/18 21:01 Last Admin: 07/22/17 21:06 Dose: 1 drop Lisinopril (Zestril) 10 mg PO DAILY [facility] PRN Reason: Protocol Stop: 01/20/18 09:01 Last Admin: 07/23/17 09:15 Dose: 10 mg Morphine Sulfate (Morphine Sulfate) 2 mg IVP Q4HR PRN PRN Reason: Severe Pain (7-10) Stop: 01/19/18 22:07 Naloxone HCl (Narcan) 0.4 mg IVP Q2MIN PRN PRN Reason: Opioid Reversal Stop: 01/19/18 22:09 Ondansetron HCl (Zofran) 4 mg IVP Q8HR PRN PRN Reason: Nausea And Vomiting Stop: 01/19/18 22:07 Pantoprazole Sodium (Protonix) 40 mg IVP DAILY [facility] Stop: 01/19/18 22:16 Last Admin: 07/23/17 09:15 Dose: 40 mg - Imaging and Cardiology Echo: report reviewed - EKG Interpretation EKG results cardiology: other (12 hr tele AVG HR 72, pauses up to 4.6 seconds) Consult Discharge Plan - Plan Referrals: Juanito Santana MD [Primary Care Provider] -
[2017-07-23] MEDS ORDERED: ceFAZolin 2,000 MG in D5% in Water 100 ML IVPB ONE (10:33)
[2017-07-23] MEDS: Latanoprost 2.5 ML BOTTLE BOTH EYES SCH (20:02)
--- NOTE | 2017-07-23 20:06 | Internal Med Progress Note ---
Date of Encounter: 07/23/17 Time of Encounter: 11:00 - Assessment and plan (1) Syncope Current Visit: Yes Status: Acute Assessment and plan: -Patient with multiple syncopal events over past 6 months. -Cardiology consult and Holter monitor demonstrated multiple sinus pauses up to 5.3 seconds. -Recommendations for permanent pacemaker on Sunday. Qualifiers: Syncope type: unspecified Qualified Code(s): R55 - Syncope and collapse (2) HTN (hypertension) Current Visit: Yes Status: Chronic Assessment and plan: -Controlled; continue home medications Qualifiers: Hypertension type: essential hypertension Qualified Code(s): I10 - Essential (primary) hypertension (3) HLD (hyperlipidemia) Current Visit: Yes Status: Chronic Assessment and plan: -Continue statin Qualifiers: Hyperlipidemia type: pure hypercholesterolemia Qualified Code(s): E78.00 - Pure hypercholesterolemia, unspecified; E78.0 - Pure hypercholesterolemia (4) DVT prophylaxis Current Visit: Yes Status: Acute Assessment and plan: -Continue subcutaneous heparin - Subjective Interval history: No acute events overnight and patient resting comfortably in the bed this afternoon with no issues or complaints. - Constitutional Vitals: Temp Pulse Resp BP Pulse Ox 97.7 F 76 15 131/71 95 07/23/17 19:00 07/23/17 19:00 07/23/17 19:00 07/23/17 19:00 07/23/17 19:00 General appearance: Present: cooperative, A&O X 3, morbidly obese, pleasant, no acute distress, answers questions appropriately - Respiratory Respiratory exam: Present: CTAB. Absent: accessory muscle use, rales, rhonchi, wheezes - Cardiovascular Cardiovascular exam: Present: RRR, +S1, +S2. Absent: diastolic murmur, gallop, rubs, systolic murmur Internal Medicine: Result - Labs CBC & Chem 7: 07/23/17 04:27 07/23/17 04:27 Labs: Short CBC 07/23/17 Range/Units 04:27 WBC 5.7 (4.3-11.1) K/mcL Hgb 12.1 L (12.9-16.9) g/dL Hct 37.8 (37.5-50.1) % Plt Count 207 (140-400) K/mcL Neutrophils # 3.0 (1.6-8.9) K/mcL BMP 07/23/17 04:27 Sodium 141 Potassium 3.9 Chloride 106 Carbon Dioxide 29 BUN 19 Creatinine 1.10 Glucose 119 H Calcium 8.3 L Liver Function 07/23/17 Range/Units 04:27 Total Bilirubin 0.3 (0.2-1.2) mg/dL AST 15 (5-34) Units/L ALT 15 (0-55) Units/L Alkaline Phosphatase 49 (38-126) Units/L Albumin 3.1 L (3.5-5.0) g/dL - ABG Interpretation ABG results: PT/INR, D-dimer PT 10.4 Seconds (9.4-12.1) 07/21/17 05:24 Consult Discharge Plan - Plan Referrals: Juanito Santana MD [Primary Care Provider] -
[2017-07-24] MEDS: *HR* Heparin 5,000 UNIT/ML VIAL SQ SCH ×3 (05:20→21:54)
[2017-07-24 06:18] LABS: Basophils % 0.7 %; Eosinophils # 0.4 K/mcL (0.0-0.6); Eosinophils % 6.8 %; Hematocrit 38.2 % (37.5-50.1); Hemoglobin 12.3 g/dL (12.9-16.9); Immature Granulocytes % 0.2 % (0-4); Lymphocytes # 1.6 K/mcL (0.6-4.6); Lymphocytes % 26.8 %; Mean Corpuscular HGB Conc 32.2 g/dL (31.6-35.5); Mean Corpuscular Hemoglobin 28.5 pg (28.0-33.3); Mean Corpuscular Volume 88.6 fL (83.0-100.0); Mean Platelet Volume 9.9 fL (9.4-12.4); Monocytes # 0.8 K/mcL (0.0-1.3); Monocytes % 12.9 %; Neutrophils # 3.2 K/mcL (1.6-8.9); Platelet Count 220 K/mcL (140-400); Red Blood Count 4.31 M/mcL (4.19-5.50); Red Cell Distribution Width 15.3 % (11.5-14.5); Segmented Neutrophils % 52.6 %
[2017-07-24 06:40] LABS: Alanine Aminotransferase 17 Units/L (0-55); Albumin 3.3 g/dL (3.5-5.0); Albumin/Globulin Ratio 1.1 (1.1-2.2); Alkaline Phosphatase 54 Units/L (38-126); Aspartate Amino Transferase 15 Units/L (5-34); BUN/Creatinine Ratio 16 (6-26); Bilirubin,Total 0.3 mg/dL (0.2-1.2); Blood Urea Nitrogen 15 mg/dL (8-26); Calcium 8.3 mg/dL (8.6-10.8); Carbon Dioxide 29 mEq/L (19-29); Chloride 108 mEq/L (98-109); Globulin 2.9 g/dL (2.4-3.5); Glucose 81 mg/dL (70-99); Osmolality,Calculated 292 (280-300); Potassium 4.1 mEq/L (3.5-4.5); Sodium 141 mEq/L (136-145); Total Protein 6.2 g/dL (6.0-8.3); eGFR For African Americans > 60 (> 60); eGFR For Non-African Americans > 60 (> 60)
[2017-07-24] MEDS ORDERED: ceFAZolin 2,000 MG in D5% in Water 100 ML IVPB ONE (07:00)
[2017-07-24] MEDS: Aspirin 81 MG TAB.CHEW PO SCH (07:55)
[2017-07-24] MEDS: Pantoprazole 40 MG VIAL IVP SCH (07:56)
[2017-07-24] MEDS ORDERED: 0.9 % Sodium Chloride 1,000 ML ONE (10:29)
--- NOTE | 2017-07-24 10:51 | Pre-Sedation Evaluation ---
Pre-sedation evaluation - Pre-sedation checklist Procedure: CAROTID ANGIO Recent Vitals: Last Vital Signs Temp 97.8 F 07/24/17 07:15 Pulse 71 07/24/17 07:15 Resp 18 07/24/17 07:15 BP 152/78 07/24/17 07:15 Pulse Ox 96 07/24/17 07:15 H&P (including ROS) documented in medical record: Yes Previous reaction to sedatives/anesthetics: No Dietary Status: NPO 6 hours prior to procedure Airway Assessment: Patient can open mouth completely, TMJ function normal, Micrognathia (under-bite, receding chin) absent Dentition: dentures removed Possible difficult airway: No ASA Classification *see protocol: CLASS II-Mild systemic disease Plan of Care: Pt appropriate candidate for procedure/moderate/conscious sedation , Risks/benefits of procedure/sedation discussed w/ patient/family
[2017-07-24] MEDS ORDERED: 0.9 % Sodium Chloride 500 ML ONE (10:56)
[2017-07-24] MEDS ORDERED: Water for inj. (sterile) 10 ML IV ONE (10:56)
[2017-07-24] MEDS ORDERED: *HR* Midazolam HCl 2 MG/2 ML VIAL ONE (11:09)
[2017-07-24] MEDS ORDERED: *HR* FentaNYL (PF) 100 MCG/2 ML VIAL ONE (11:09)
--- NOTE | 2017-07-24 12:01 | Internal Med Progress Note ---
Date of Encounter: 07/24/17 Time of Encounter: 12:00 - Assessment and plan (1) Hypertension Current Visit: Yes Status: Chronic Assessment and plan: Controlled Qualifiers: Hypertension type: essential hypertension Qualified Code(s): I10 - Essential (primary) hypertension (2) Sinus pause Current Visit: Yes Status: Acute Assessment and plan: s/p PCM placement, stable (3) Syncope Current Visit: Yes Status: Acute Assessment and plan: -Patient with multiple syncopal events over past 6 months. -Cardiology consult and Holter monitor demonstrated multiple sinus pauses up to 5.3 seconds. s/p PCM today, stable post-op Possible d/c a.m if remains stable, CXR unremarkable Qualifiers: Syncope type: unspecified Qualified Code(s): R55 - Syncope and collapse (4) HLD (hyperlipidemia) Current Visit: Yes Status: Chronic Assessment and plan: -Continue statin Qualifiers: Hyperlipidemia type: pure hypercholesterolemia Qualified Code(s): E78.00 - Pure hypercholesterolemia, unspecified; E78.0 - Pure hypercholesterolemia (5) DVT prophylaxis Current Visit: Yes Status: Acute Assessment and plan: -Continue subcutaneous heparin - Subjective Interval history: Seen and evaluated at bedside, immediate post-op 81 M admitted for syncope, sinus pauses, s/p PCM placement today Post -op CXR normal No new complains - Constitutional Vitals: Temp Pulse Resp BP Pulse Ox 97.8 F 71 18 152/78 96 07/24/17 07:15 07/24/17 07:15 07/24/17 07:15 07/24/17 07:15 07/24/17 07:15 General appearance: Present: cooperative, A&O X 3, morbidly obese, pleasant, no acute distress, answers questions appropriately - Head Head exam: Present: atraumatic, normocephalic - Eye Eye exam: Present: PERRL, conjuntiva pink, sclera anicteric Pupils: Present: PERRL - Neck Neck exam general surgery: Present: supple, trachea midline. Absent: lymphadenopathy - Respiratory Respiratory exam: Present: CTAB. Absent: accessory muscle use, rales, rhonchi, wheezes Additional comments: Chest wall with PCM, dressing clean and dry - Cardiovascular Cardiovascular exam: Present: RRR, +S1, +S2. Absent: diastolic murmur, gallop, rubs, systolic murmur - GI/Abdominal GI/Abdominal exam: Present: normal bowel sounds, soft, no peritoneal signs. Absent: distended, tenderness - Extremities Exam Extremities exam: Present: warm, radial pulses palpable and symmetrical. Absent : calf tenderness, cyanotic, pedal edema - Neurological Exam Neurological exam: Present: alert, CN II-XII intact, oriented X3, no focal deficits. Absent: pronater drift, facial droop, speech deficit - Skin Skin exam: Present: dry, intact Internal Medicine: Result - Labs CBC & Chem 7: 07/24/17 04:33 07/24/17 04:33 - ABG Interpretation ABG results: PT/INR, D-dimer PT 10.4 Seconds (9.4-12.1) 07/21/17 05:24 Consult Discharge Plan - Plan Referrals: Juanito Santana MD [Primary Care Provider] - 07/27/17 11:00 am
[2017-07-24] MEDS ORDERED: ceFAZolin 2,000 MG in D5% in Water 100 ML IVPB SCH (16:00)
[2017-07-24] MEDS: Latanoprost 2.5 ML BOTTLE BOTH EYES SCH (21:48)
[2017-07-25] MEDS ORDERED: ceFAZolin 2,000 MG in D5% in Water 100 ML IVPB SCH (03:00)
[2017-07-25 04:22] LABS: Basophils % 0.3 %; Eosinophils # 0.4 K/mcL (0.0-0.6); Eosinophils % 5.4 %; Hematocrit 39.8 % (37.5-50.1); Hemoglobin 12.8 g/dL (12.9-16.9); Immature Granulocytes % 0.4 % (0-4); Lymphocytes # 1.4 K/mcL (0.6-4.6); Lymphocytes % 19.3 %; Mean Corpuscular HGB Conc 32.2 g/dL (31.6-35.5); Mean Corpuscular Hemoglobin 28.4 pg (28.0-33.3); Mean Corpuscular Volume 88.2 fL (83.0-100.0); Monocytes # 0.9 K/mcL (0.0-1.3); Monocytes % 12.5 %; Neutrophils # 4.4 K/mcL (1.6-8.9); Platelet Count 216 K/mcL (140-400); Red Blood Count 4.51 M/mcL (4.19-5.50); Red Cell Distribution Width 15.1 % (11.5-14.5); Segmented Neutrophils % 62.1 %
[2017-07-25 04:32] LABS: Alanine Aminotransferase 16 Units/L (0-55); Albumin 3.4 g/dL (3.5-5.0); Albumin/Globulin Ratio 1.1 (1.1-2.2); Alkaline Phosphatase 61 Units/L (38-126); Aspartate Amino Transferase 15 Units/L (5-34); BUN/Creatinine Ratio 15 (6-26); Bilirubin,Total 0.4 mg/dL (0.2-1.2); Blood Urea Nitrogen 15 mg/dL (8-26); Calcium 8.4 mg/dL (8.6-10.8); Carbon Dioxide 27 mEq/L (19-29); Chloride 106 mEq/L (98-109); Globulin 3.1 g/dL (2.4-3.5); Glucose 121 mg/dL (70-99); Osmolality,Calculated 292 (280-300); Sodium 140 mEq/L (136-145); Total Protein 6.5 g/dL (6.0-8.3); eGFR For African Americans > 60 (> 60); eGFR For Non-African Americans > 60 (> 60)
[2017-07-25] MEDS: *HR* Heparin 5,000 UNIT/ML VIAL SQ SCH (05:54)
[2017-07-25 06:50] VITALS: BP 133/72
[2017-07-25] MEDS: Aspirin 81 MG TAB.CHEW PO SCH (08:44)
--- NOTE | 2017-07-25 08:45 | Discharge Summary ---
Date of Encounter: 07/25/17 Time of Encounter: 08:45 - Discharge Diagnosis (1) Hypertension Priority: Secondary Status: Chronic Qualifiers: Hypertension type: essential hypertension Qualified Code(s): I10 - Essential (primary) hypertension (2) Sinus pause Priority: Primary Status: Acute (3) Syncope Priority: Primary Status: Acute Qualifiers: Syncope type: unspecified Qualified Code(s): R55 - Syncope and collapse (4) HLD (hyperlipidemia) Priority: Secondary Status: Chronic Qualifiers: Hyperlipidemia type: pure hypercholesterolemia Qualified Code(s): E78.00 - Pure hypercholesterolemia, unspecified; E78.0 - Pure hypercholesterolemia (5) DVT prophylaxis Priority: Primary Status: Acute - Discharge Medications Home Medications: Aspirin 81 mg PO DAILY 02/16/17 [History] Latanoprost [Xalatan] 1 drop BOTH EYES HS 03/22/17 [History] Omeprazole [PriLOSEC] 20 mg PO DAILY PRN 03/22/17 [History] Atorvastatin [Lipitor] 40 mg PO HS 07/20/17 [History] Lisinopril [Zestril] 10 mg PO DAILY 07/20/17 [History] Allergies/Adverse Reactions: 3 Allergy/AdvReac Type Severity Reaction Status Date / Time No Known Allergies Allergy Verified 03/22/17 06:53 Date of admission: 07/24/17 09:46 Primary care physician: Juanito Santana MD Discharging clinician: Orlando Elizondo Anticipated date of discharge: 07/25/17 - Patient Status Disposition: Home, Self-Care Condition: Good Functional capacity at discharge: independent ambulation Overall status at discharge: patient is back to baseline - Discharge Instructions Instructions: Pacemaker (DC) Follow Up With: Juanito Santana MD [Primary Care Provider] - 07/27/17 11:00 am Additional Instructions: ACTIVITY: Moderate activity for the next 7 days. No lifting more than 5 pounds ( gallon of milk) for 4-6 weeks. Avoid lifting your arm on the same side as the device for 4 weeks. BATHING /SHOWERING: Do not remove the large bandage over the site for 2 days. Do not allow the device to get wet for 7-10 days. You may bathe/shower, but do not use soap and water on the site. When bathing, keep the site dry by covering with Saran wrap or a towel. WOUND CARE: The white steri-strips will start to peel away and come off after 14 days, or your doctor will remove them after [address] anything into or on top of the incision. Do not use cotton swabs. Do not use any antibiotic ointment or Vitamin E on the site. REMINDERS: You may use electrical devices, such as, microwaves, hair dryers, electric razors, electric blankets, etc. as long as they are in good condition and kept 6 -8 inches away from the device. It is recommended to use cell phones on the opposite side of your device. Notify security personnel at the airport that you have a device before you go through airport security screening. When at places with security monitors, such as a grocery store, do not linger near these monitors. It is fine to walk past them in a normal manner. Refer to your owners manual for more specific directions. CARRY YOUR PACEMAKER/ICD CARD WITH YOU AT ALL TIMES Return to work as instructed per physician Resume driving as instructed per physician Keep all scheduled follow up appointments Resume medications as instructed Contact [facility] ( ) if: You develop excessive bleeding from insertion or wound site not controlled by applying pressure You develop a fever greater than 101 degrees Fahrenheit Your incision becomes reddened at or around the site Your incision develops yellowish or greenish drainage or development of white pimple-like bumps You experience excessive pain You develop swelling in your ankles You experience muscle switching You develop excessive hiccupping If you experience chest pain, shortness of breath, dizziness, or extreme tiredness, stop the activity and rest. Please notify [facility] office if you experience any of these symptoms and they are not relieved by rest please call 911!Wound Check will be August 02, 2017 at 10:00 at [facility]. Device Check will be August 24, 2017 at [facility]. Phone number is [phone]. If you are unable to make these appointment please call. Thank you! - Diet and Activity Activity: resume usual activities as tolerated Diet: low fat, low cholesterol, low salt diet Interval History: Mr. Benites is a 81 year old male with medical history of bilateral carotid stenosis s/p bilateral CEAs this year, hyperlipidemia and hypertension presents from the ED with chief complaint of dizziness, presyncope, and palpitations for the past 2 months. Patient states when symptoms begin he feels the room is spinning. Hospital course: Patient was admitted for pre-syncope work up and cardiology was consulted. Patient was placed on Holter monitoring and report showed pauses up to 5.3 seconds, and patient was recommended for PCM placement by cardiology. His electrolytes, TSH and ECHO were normal for age and patient was not on any AV brit blockers. Patient has a PCM placed on 07/24/17, immediate post op CXR unremarkable, vitals remain stable. He is seen and evaluated at bedside this morning, with no new complains CXR this a.m, unremarkable, patient is ambulatory and tolerating po. His device was checked and interrogated and deemed to be functional, he is stable to be discharged home, instructions for wound care discussed by cardiology Other chronic medical conditions stable Flu Vac recommended Follow up with PCP and cardiology - Time Spent with Patient Total time spent providing and/or coordinating discharge services: Greater than 30 minutes - Constitutional Vitals: Temp Pulse Resp BP Pulse Ox 97.8 F 78 16 133/72 93 07/25/17 06:49 07/25/17 06:49 07/25/17 06:49 07/25/17 06:49 07/25/17 06:49 General appearance: Present: cooperative, A&O X 3, morbidly obese, pleasant, no acute distress, answers questions appropriately - Head Head exam: Present: atraumatic, normocephalic - Eye Eye exam: Present: PERRL, conjuntiva pink, sclera anicteric Pupils: Present: PERRL - Neck Neck exam general surgery: Present: supple, trachea midline. Absent: lymphadenopathy - Respiratory Respiratory exam: Present: CTAB. Absent: accessory muscle use, rales, rhonchi, wheezes - Cardiovascular Cardiovascular exam: Present: RRR, +S1, +S2. Absent: diastolic murmur, gallop, rubs, systolic murmur - GI/Abdominal GI/Abdominal exam: Present: normal bowel sounds, soft, no peritoneal signs. Absent: distended, tenderness - Extremities Exam Extremities exam: Present: warm, radial pulses palpable and symmetrical. Absent : calf tenderness, cyanotic, pedal edema - Neurological Exam Neurological exam: Present: alert, CN II-XII intact, oriented X3, no focal deficits. Absent: pronater drift, facial droop, speech deficit - Skin Skin exam: Present: dry, intact - VTE Documentation of Mechanical Device: Intermittent pneumatic compression device
[2017-07-25] MEDS ORDERED: FLUARIX QUAD 2017-18 36MOS UP/PF 0.5 ML SYRINGE IM ONE (09:07)
--- NOTE | 2017-07-25 10:05 | Cardiology Progress Note ---
Date of Encounter: 07/25/17 Time of Encounter: 10:00 Assessment and Plan (1) Pacemaker Current Visit: Yes Status: Acute PPM inserted yesterday for sinus pauses and syncope. Pacemaker site healing well. No bleeding, hematoma or ecchymosis noted. Steri- strips intact. Restrictions discussed. CXR okay. PPM interrogation, no atrial thresholds recorded. Discussed with device rep--came to recheck device and they confirm it is functioning normal and as expected. Cardiology signing off. Reconsult PRN. Follow-up in 7-10 days wound check, 4-6 weeks for device check and in [address] Lance Tillman. Cardiology signing off. Reconsult PRN. (2) Sinus pause Current Visit: Yes Status: Acute Holter monitor outpt showed pauses up to 5.3 seconds--symptoms of presyncope and syncope. Pt was not on AV brit blockers. Electrolytes and TSH within normal range. Echo with preserved EF, no significant findings. Continues to have these symptoms s/p bilateral CEAs this summer. S/P PPM yesterday, no further pauses s/p PPM. (3) Syncope Current Visit: Yes Status: Acute As above, Likely secondary to sinus pauses. s/p PPM. Qualifiers: Syncope type: unspecified Qualified Code(s): R55 - Syncope and collapse Discussion w patient/family: The assessment and plan as outlined above was discussed with the patient and/or family members who expressed understanding and agreement. All questions were answered. Thank you for involving us in the care of your patient. Please call with any questions. I will discuss all the above with Dr. Elias and make changes as necessary. Subjective Principal diagnosis: Sick sinus syndrome Interval history: S/P PPM yesterday for sinus pauses and syncope/presyncope. Pt denies any symptoms overnight, reports feeling well. Objective Vital Signs, Last 4 Hours Temp Pulse Resp BP Pulse Ox 07/25/17 06:49 97.8 F 78 16 133/72 93 Vital Signs Temp Pulse Resp BP Pulse Ox 07/25/17 06:49 97.8 F 78 16 133/72 93 07/25/17 03:33 98.3 F 91 14 146/68 95 07/24/17 23:37 98.1 F 79 14 175/89 94 07/24/17 19:18 98.0 F 83 16 181/90 95 07/24/17 15:12 97.4 F L 74 16 142/79 95 07/24/17 13:55 71 16 162/82 96 07/24/17 13:25 77 15 158/69 07/24/17 13:10 80 15 141/67 96 07/24/17 12:55 86 16 149/90 95 07/24/17 12:40 76 17 167/104 96 07/24/17 12:25 97.6 F 75 16 174/85 97 Intake and Output 07/24/17 07/25/17 07/25/17 23:59 07:59 15:59 Intake Total 360 / 360 Balance 360 / 360 Intake: Oral 360 / 360 Other: Meal Breakfast Percent of Meal Consumed 100% General: Conversant, No Apparent Distress HEENT: Atraumatic, Normocephaly, Mucus Membranes Moist Neck: No JVD, Normal carotid pulses Cardiac: Reg Rate and Rhythm, Normal S1 and S2, No Murmur Lungs: Normal Breath Sounds, No Wheeze, Rales, Rhonchi Neuro: Alert and responsive, No focal deficits noted Abdomen: Soft, Non-Tender Skin: Other (left chest device site healing well. No bleeding, hematoma or ecchymosis. Steri strips intact.) Musculoskeletal: No Chest Wall Tenderness Extremities: No Clubbing, No Cyanosis, No Edema, Normal Pulses Results 07/25/17 03:08 07/25/17 03:08 Lab Results 07/25/17 07/25/17 03:08 03:08 WBC 7.1 Hgb 12.8 L Hct 39.8 Plt Count 216 Sodium 140 Potassium 4.0 Chloride 106 Carbon Dioxide 27 BUN 15 Creatinine 0.99 Glucose 121 H Calcium 8.4 L Total Bilirubin 0.4 AST 15 ALT 16 Alkaline Phosphatase 61 Short CBC 07/25/17 Range/Units 03:08 WBC 7.1 (4.3-11.1) K/mcL Hgb 12.8 L (12.9-16.9) g/dL Hct 39.8 (37.5-50.1) % Plt Count 216 (140-400) K/mcL Neutrophils # 4.4 (1.6-8.9) K/mcL BMP 07/25/17 Range/Units 03:08 Sodium 140 (136-145) mEq/L Potassium 4.0 (3.5-4.5) mEq/L Chloride 106 (98-109) mEq/L Carbon Dioxide 27 (19-29) mEq/L BUN 15 (8-26) mg/dL Creatinine 0.99 (0.72-1.25) mg/dL Glucose 121 H (70-99) mg/dL Calcium 8.4 L (8.6-10.8) mg/dL Liver Function 07/25/17 Range/Units 03:08 Total Bilirubin 0.4 (0.2-1.2) mg/dL AST 15 (5-34) Units/L ALT 16 (0-55) Units/L Alkaline Phosphatase 61 (38-126) Units/L Albumin 3.4 L (3.5-5.0) g/dL Impressions Chest X-Ray 07/24/17 12:10 IMPRESSION: No acute process. Transvenous pacer in place without evidence for pneumothorax D/ / David Jorgensen MD / David Jorgensen MD Interpreting Provider: David Jorgensen MD Active Medications Acetaminophen (Tylenol) 650 mg PO Q6HR PRN PRN Reason: Mild Pain (1-3) Stop: 01/19/18 22:07 Last Admin: 07/24/17 19:09 Dose: 650 mg Hydrocodone Bitart/Acetaminophen ([place] 5-325 Mg) 1 tab PO Q4HR PRN PRN Reason: Moderate Pain (4-6) Stop: 01/19/18 22:07 Aspirin (Aspirin) 81 mg PO DAILY [facility] Stop: 01/20/18 09:01 Last Admin: 07/25/17 08:44 Dose: 81 mg Atorvastatin Calcium (Lipitor) 40 mg PO HS ANTWON Stop: 01/20/18 21:01 Last Admin: 07/24/17 21:47 Dose: 40 mg Heparin Sodium (Porcine) (Heparin) 5,000 unit SQ Q8HCO ANTWON Stop: 01/20/18 06:01 Last Admin: 07/25/17 05:54 Dose: Not Given Latanoprost (Xalatan) 1 drop BOTH EYES HS ANTWON PRN Reason: Protocol Stop: 01/20/18 21:01 Last Admin: 07/24/17 21:48 Dose: 1 drop Lisinopril (Zestril) 10 mg PO DAILY ANTWON PRN Reason: Protocol Stop: 01/20/18 09:01 Last Admin: 07/25/17 08:44 Dose: 10 mg Morphine Sulfate (Morphine Sulfate) 2 mg IVP Q4HR PRN PRN Reason: Severe Pain (7-10) Stop: 01/19/18 22:07 Naloxone HCl (Narcan) 0.4 mg IVP Q2MIN PRN PRN Reason: Opioid Reversal Stop: 01/19/18 22:09 Omeprazole (Prilosec) 20 mg PO DAILY@0630 ANTWON PRN Reason: Protocol Stop: 01/24/18 06:31 Last Admin: 07/25/17 05:54 Dose: Not Given Ondansetron HCl (Zofran) 4 mg IVP Q8HR PRN PRN Reason: Nausea And Vomiting Stop: 01/19/18 22:07 - Imaging and Cardiology Echo: report reviewed - EKG Interpretation EKG results cardiology: other (12 hr tele AVG HR 79, SR, occasional pacing, no significant pauses) - VTE Documentation of Mechanical Device: Intermittent pneumatic compression device Consult Discharge Plan - Plan Instructions: Pacemaker (DC) Additional Instructions: ACTIVITY: Moderate activity for the next 7 days. No lifting more than 5 pounds ( gallon of milk) for 4-6 weeks. Avoid lifting your arm on the same side as the device for 4 weeks. BATHING /SHOWERING: Do not remove the large bandage over the site for 2 days. Do not allow the device to get wet for 7-10 days. You may bathe/shower, but do not use soap and water on the site. When bathing, keep the site dry by covering with Saran wrap or a towel. WOUND CARE: The white steri-strips will start to peel away and come off after 14 days, or your doctor will remove them after [address] anything into or on top of the incision. Do not use cotton swabs. Do not use any antibiotic ointment or Vitamin E on the site. REMINDERS: You may use electrical devices, such as, microwaves, hair dryers, electric razors, electric blankets, etc. as long as they are in good condition and kept 6 -8 inches away from the device. It is recommended to use cell phones on the opposite side of your device. Notify security personnel at the airport that you have a device before you go through airport security screening. When at places with security monitors, such as a grocery store, do not linger near these monitors. It is fine to walk past them in a normal manner. Refer to your owners manual for more specific directions. CARRY YOUR PACEMAKER/ICD CARD WITH YOU AT ALL TIMES Return to work as instructed per physician Resume driving as instructed per physician Keep all scheduled follow up appointments Resume medications as instructed Contact [facility] ( ) if: You develop excessive bleeding from insertion or wound site not controlled by applying pressure You develop a fever greater than 101 degrees Fahrenheit Your incision becomes reddened at or around the site Your incision develops yellowish or greenish drainage or development of white pimple-like bumps You experience excessive pain You develop swelling in your ankles You experience muscle switching You develop excessive hiccupping If you experience chest pain, shortness of breath, dizziness, or extreme tiredness, stop the activity and rest. Please notify [facility] office if you experience any of these symptoms and they are not relieved by rest please call 911!Wound Check will be August 02, 2017 at 10:00 at [facility]. Device Check will be August 24, 2017 at [facility]. Phone number is [phone]. If you are unable to make these appointment please call. Thank you! Referrals: Juanito Santana MD [Primary Care Provider] - 07/27/17 11:00 am
== END 2017-07-25 12:57 | disposition home or self-care (01) | DRG 244 ==
LOC: EMEROO 14:38 → 3BNU 14:38 → SUATTDRO 17:54 → 3BNU 18:47
PROVIDERS: ADMIT Internal Medicine; ATTEND Internal Medicine